=== PATIENT | male | born 1955 | race Caucasian/White ===

== ENCOUNTER → 2017-01-26 | Outpatient (CLI) | payer BC ==
--- NOTE | 2017-01-27 15:52 | MR ---
EXAMINATION TYPE: MR lumbar spine wo con DATE OF EXAM: 01/26/2017 6:54 AM COMPARISON: 02/24/2016 HISTORY: 61-year-old male with low back pain TECHNIQUE: Multiplanar, multisequence images of the lumbar spine were acquired. FINDINGS: Redemonstrated dextroconvex scoliotic curvature. Modic type I edematous endplate change towards the l eft at the center of the curvature at L2-L4 shows decreasing edematous Modic type I endplate change. There is grade 1 retrolisthesis that L2-L3. Hypertrophic facet arthropathy throughout. Degenerative thinning of the interspinous ligaments with near abutment of the spinous processes. Moderate multilevel degenerative disc disease with a desiccated and narrowed disc and diffuse bulging at multiple levels. Enlarging posterior annular fissure at L4-L5. No suspicious bone marrow replacement. Conus medullaris is normal. At T12-L1, no spinal canal or neuroforaminal stenosis. At L1-L2, mild bulge with mild attenuation of the thecal sac and minimal bilateral inferior foraminal narrowing, not significantly changed. At L3-L4, there is disc bulge with grade 1 retrolisthesis and facet degenerative change. There is mil d circumferential attenuation of the thecal sac but without significant spinal canal stenosis. There is moderate left and mild right neuroforaminal stenosis not significantly changed. At L3-L4, there is facet degenerative change and diffuse disc bulge. Changes result in attenuation of the thecal sac without significant spinal canal stenosis. There is similar moderate right and severe left neuroforaminal stenosis with effacement of the exiting left L3 nerve root. At L4-L5, diffuse disc bulge with enlarging posterior annular fissure. Ligamentum flavum thickening a nd facet degenerative changes also present. Mild narrowing of the spinal canal here. There is similar moderate bilateral neuroforaminal stenosis. At L5-S1, there is diffuse disc bulge without significant spinal canal or foraminal stenosis. No prevertebral or paravertebral soft tissue abnormality seen. IMPRESSION: 1. Redemonstrated degenerated dextroconvex curvature centered at L3-L4. The Modic type I endplate zakia nge towards the left at L3-L4 shows some interval improvement with residual endplate edema present. 2. Moderate to advanced multilevel degenerative disc disease with enlarging posterior annular fissure at L4-L5. 3. Additional facet arthropathy with similar grade 1 retrolisthesis at L2-L3. 4. There is continued severe left neuroforaminal stenosis at L3-L4 with effacement of the left L3 ner ve root. Also, similar moderate right neuroforaminal stenosis at this level, on the left at L3-L4, an d on both sides at L4-L5. 5. While changes mildly attenuate the thecal sac at multiple levels, particularly at L4-L5, there is no dexter canal compromise.
== END | disposition home or self-care (01) ==
LOC: RADMRIMAIN 06:20
PROVIDERS: ATTEND Neurological Surgery
DX: Z01.818 Encounter for other preprocedural examination (principal); M99.71 Connective tissue and disc stenosis of intervertebral foramina of cervical region; M51.36 Other intervertebral disc degeneration, lumbar region; M43.16 Spondylolisthesis, lumbar region; M46.96 Unspecified inflammatory spondylopathy, lumbar region; M43.8X6 Other specified deforming dorsopathies, lumbar region
CPT/HCPCS: 72148

== ENCOUNTER → 2018-01-21 | Outpatient (CLI) | payer BC ==
--- NOTE | 2018-01-21 10:49 | MR ---
EXAMINATION TYPE: MR lumbar spine wo/w con DATE OF EXAM: 01/21/2018 COMPARISON: 01/26/2017 HISTORY: Lumbosacral spondylosis TECHNIQUE: T1 and T2 axial and sagittal images of the lumbar spine are submitted. Exam is limited b y motion artifact. FINDINGS: Redemonstrated dextroconvex scoliotic curvature. Modic type I edematous endplate change tow ards the left at the center of the curvature at L2-L4 shows decreasing edematous Modic type I endplat e change. There is grade 1 retrolisthesis that L2-L3. Hypertrophic facet arthropathy throughout. Degenerative t hinning of the interspinous ligaments with near abutment of the spinous processes. Moderate multileve l degenerative disc disease with a desiccated and narrowed disc and diffuse bulging at multiple level s. Enlarging posterior annular fissure at L4-L5. No suspicious bone marrow replacement. Conus medulla ris is normal. Small vertebral body hemangioma of L1 and L3. At T12-L1, no spinal canal or neuroforaminal stenosis. At L1-L2, mild bulge with mild attenuation of the thecal sac and minimal bilateral inferior foraminal narrowing, not significantly changed. Degenerative disc disease stable. At L2-L3, there is disc bulge with grade 1 retrolisthesis and facet degenerative change. There is mil d circumferential attenuation of the thecal sac but with mild central stenosis. There is moderate lef t and mild right neuroforaminal stenosis not significantly changed. At L3-L4, there is facet degenerative change and diffuse disc bulge. Changes result in attenuation of the thecal sac without significant spinal canal stenosis. There is similar moderate to severe right and severe left neuroforaminal stenosis with effacement of the exiting left L3 nerve root. Postsurgic al changes are noted. Severe left-sided foraminal encroachment protrusion with compression of the ner ve root and neural foramina. At L4-5 there is severe degenerative disc disease with postsurgical changes. Central disc bulging wit h marked facet arthropathy. Moderate to severe bilateral foraminal encroachment. At L5-S1 there is degenerative disc disease. Postsurgical changes are noted. Facet arthropathy and di scogenic marrow changes with mild bilateral foraminal encroachment. IMPRESSION: 1. Surgical change with multilevel significant degenerative disc disease and facet arthropathy. Findi ngs result in multilevel significant foraminal encroachment with the greatest findings noted on the l eft at L3-L4 with suspected nerve root compression within the neural foramina.
== END | disposition home or self-care (01) ==
LOC: RADMRIMAIN 08:47
PROVIDERS: ATTEND Neurological Surgery
DX: M51.37 Other intervertebral disc degeneration, lumbosacral region (principal); M46.97 Unspecified inflammatory spondylopathy, lumbosacral region; Z98.890 Other specified postprocedural states
CPT/HCPCS: 82565; 72158; A9581

== ENCOUNTER 2020-05-02 12:41 | Day surgery (SDC) | payer BC, OTHER ==
[2020-04-30 10:48] VITALS: BMI 25.5
[~2020-05-02 12:41] MED LIST: LACTATED RINGERS 1,000 ML IV SCH
[2020-05-02 13:07] VITALS: RESP 16; TEMP 97.7
[2020-05-02] MEDS ORDERED: LIDOCAINE 1% (10MG/ML) FOR IV START INTRADERMA ONE (13:11)
[2020-05-02] MEDS ORDERED: PROPOFOL 10 MG/ML 20 ML VIAL IV ONE (13:47)
[2020-05-02 14:17] VITALS: PULSE 71
--- NOTE | 2020-05-02 14:18 | P.PCN ---
Date of Procedure: 05/02/20 Preoperative Diagnosis: GI bleed Postoperative Diagnosis: Gastritis Esophagitis Internal hemorrhoids Procedure(s) Performed: EGD with biopsy Colonoscopy Surgeon: Senia Carbone Pathology: other (Biopsies of esophagus, antrum, duodenum) Condition: stable Disposition: same day Indications for Procedure: 65-year-old male presented to the surgery clinic with complaints of blood in his stool and reflux like symptoms. Secondary to this plan is for upper and lower endoscopy for further evaluation. He was explained risks, benefits and alternatives to the procedure and did provide consent prior to attending the endoscopy suite. Operative Findings: Gastritis Esophagitis Internal hemorrhoids Description of Procedure: Patient was brought to the endoscopy suite. He was then placed in left lateral decubitus position and adequate sedation was achieved using conscious sedation. A bite block was placed and an endoscope was placed in the oropharynx and advanced under endoscopic visualization. The endoscope was then advanced through the esophagus into the stomach, through the gastric antrum and in through the pylorus. The third portion of the duodenum was visualized. The endoscope was then slowly withdrawn. The first portion of the duodenum was noted to have mild inflammatory changes. Biopsies were taken. The antrum was noted to have mild inflammatory changes. Biopsies were taken. The gastric body distended normally and the gastric folds appeared normal and flattened with insufflation. A retroflexed view of the fundus and GE junction revealed no significant hiatal hernia the GE junction also did reveal some inflammatory changes. The esophagus did appear inflamed at the distal portion. This area was biopsied. Excess air was removed and the scope was then withdrawn. Excellent the digital rectal exam was performed and mild internal hemorrhoids were palpated. An endoscope was then placed in the rectum and advanced to the cecum as identified and limits including the appendiceal orifice and the ileocecal valve. The prep was fair area the colon scope was then slowly withdrawn, examining for any mucosal abnormalities. The cecum, ascending, transverse, descending and sigmoid colon were visualized adequately. There were no large neoplastic lesions noted throughout the colon. There are no large polyps noted throughout the colon. There were no evidence of diverticulosis. Retroflexion was performed rectum and internal hemorrhoids were visible. Excess air was removed, the colon scope withdrawn and the procedure terminated. The patient was then transferred to the recovery unit in stable condition. Repeat colonoscopy should be performed in 8 years.
[2020-05-02 14:30] VITALS: BP 122/72
== END 2020-05-02 14:46 | disposition home or self-care (01) ==
LOC: ORWHC2ENDO 12:41
PROVIDERS: ATTEND Surgery
DX: K29.50 Unspecified chronic gastritis without bleeding (principal); K64.8 Other hemorrhoids; K22.70 Barrett's esophagus without dysplasia; K31.89 Other diseases of stomach and duodenum; K21.0 Gastro-esophageal reflux disease with esophagitis; E78.5 Hyperlipidemia, unspecified; Z98.52 Vasectomy status; Z87.891 Personal history of nicotine dependence
CPT/HCPCS: 88305; 45378; 43239; J2704

== ENCOUNTER 2020-09-06 00:03 | Inpatient (IN) | payer OTHER ==
[2020-09-06] MEDS ORDERED: MORPHINE SULFATE 4 MG/ML SYRINGE IV STA (00:09)
[2020-09-06] MEDS ORDERED: SODIUM CHLORIDE 0.9% 1,000 ML IV STA (00:09)
[2020-09-06] MEDS ORDERED: ONDANSETRON 4 MG/2 ML VIAL IVP STA (00:09)
--- NOTE | 2020-09-06 00:12 | ED ---
Abdominal Pain HPI - General Stated Complaint: Abdominal Pain Time Seen by Provider: 09/06/20 00:09 Source: RN notes reviewed, old records reviewed Limitations: no limitations - History of Present Illness Initial Comments: This is a 65-year-old male DF for evaluation patient Dese for evaluation of abdominal pain significant right lower quadrant abdominal pain and started earlier in the day but progressed throughout the night. He was epigastric in nature but rather quadrant). Positive fever with nausea vomiting. MD Complaint: abdominal pain (RLQ pain) -: days(s) Location: RLQ, suprapubic Radiation: suprapubic Migration to: RLQ, suprapubic Severity: severe Severity scale (1-10): 8 Consistency: constant Improves With: nothing Worsens With: nothing Associated Symptoms: nausea, vomiting Treatments Prior to Arrival: prescription analgesics - Related Data Home Medications Medication Instructions Recorded Confirmed No Known Home Medications 09/06/20 09/06/20 Allergies Allergy/AdvReac Type Severity Reaction Status Date / Time No Known Allergies Allergy Verified 09/06/20 08:33 Review of Systems ROS Statement: Those systems with pertinent positive or pertinent negative responses have been documented in the HPI. ROS Other: All systems not noted in ROS Statement are negative. Past Medical History Past Medical History: No Reported History, Hyperlipidemia Additional Past Medical History / Comment(s): rectal bleeding with bowel movements, History of Any Multi-Drug Resistant Organisms: None Reported Past Surgical History: Back Surgery, Orthopedic Surgery Additional Past Surgical History / Comment(s): left knee surgery as teen, laminectomy, colonoscopy Past Anesthesia/Blood Transfusion Reactions: No Reported Reaction Smoking Status: Former smoker - Past Family History Father Family Medical History: Cancer General Exam General appearance: alert, in no apparent distress, anxious Head exam: Present: atraumatic, normocephalic, normal inspection Eye exam: Present: normal appearance, PERRL, EOMI. Absent: scleral icterus, conjunctival injection, periorbital swelling ENT exam: Present: normal exam, mucous membranes moist Neck exam: Present: normal inspection. Absent: tenderness, meningismus, lymphadenopathy Respiratory exam: Present: normal lung sounds bilaterally. Absent: respiratory distress, wheezes, rales, rhonchi, stridor Cardiovascular Exam: Present: regular rate, normal rhythm, normal heart sounds. Absent: systolic murmur, diastolic murmur, rubs, gallop, clicks GI/Abdominal exam: Present: soft, normal bowel sounds. Absent: distended, tenderness, guarding, rebound, rigid Extremities exam: Present: normal inspection, full ROM, normal capillary refill. Absent: tenderness, pedal edema, joint swelling, calf tenderness Back exam: Present: normal inspection Neurological exam: Present: alert, oriented X3, CN II-XII intact Psychiatric exam: Present: normal affect, normal mood Skin exam: Present: warm, dry, intact, normal color. Absent: rash Course Vital Signs 09/06/20 09/06/20 09/06/20 00:15 01:31 02:35 Temperature 99.4 F Pulse Rate 63 95 98 Respiratory 18 18 19 Rate Blood Pressure 129/78 126/75 125/71 O2 Sat by Pulse 98 99 98 Oximetry - Reevaluation(s) Reevaluation #1: Medical record is reviewed Patient is informed of results here in the ER and questions are answered Patient spoken with, feeling better, symptoms remained improved Medical Decision Making - Medical Decision Making 62 female DEL with severe sudden onset of worsening right lower quadrant abdominal pain. Pain is been indolent throughout the day but worse tonight. Positive CT for acute appendicitis patient be admitted for antibiotics and symptom management, surgical evaluation and treatment - Lab Data Result diagrams: 09/09/20 06:37 09/09/20 06:37 Lab Results 09/06/20 09/06/20 09/06/20 Range/Units 00:35 00:35 00:35 WBC 21.0 H (3.8-10.6) k/uL RBC 4.95 (4.30-5.90) m/uL Hgb 14.7 (13.0-17.5) gm/dL Hct 45.2 (39.0-53.0) % MCV 91.2 (80.0-100.0) fL MCH 29.6 (25.0-35.0) pg MCHC 32.5 (31.0-37.0) g/dL RDW 12.9 (11.5-15.5) % Plt Count 239 (150-450) k/uL MPV 10.2 Neutrophils % 87 % Lymphocytes % 7 % Monocytes % 4 % Eosinophils % 1 % Basophils % 0 % Neutrophils # 18.4 H (1.3-7.7) k/uL Lymphocytes # 1.5 (1.0-4.8) k/uL Monocytes # 0.8 (0-1.0) k/uL Eosinophils # 0.2 (0-0.7) k/uL Basophils # 0.0 (0-0.2) k/uL Sodium 138 (137-145) mmol/L Potassium 4.2 (3.5-5.1) mmol/L Chloride 103 (98-107) mmol/L Carbon Dioxide 25 (22-30) mmol/L Anion Gap 10 mmol/L BUN 15 (9-20) mg/dL Creatinine 0.86 (0.66-1.25) mg/dL Est GFR (CKD-EPI)AfAm >90 (>60 ml/min/1.73 sqM) Est GFR (CKD-EPI)NonAf >90 (>60 ml/min/1.73 sqM) BUN/Creatinine Ratio (12.00-20.00) Ratio Glucose 155 H (74-99) mg/dL Plasma Lactic Acid Lee (0.7-2.0) mmol/L Calcium 9.4 (8.4-10.2) mg/dL Magnesium (1.5-2.4) mg/dL Total Bilirubin 0.8 (0.2-1.3) mg/dL AST 20 (17-59) U/L ALT 17 (4-49) U/L Alkaline Phosphatase 100 (38-126) U/L Creatine Kinase 47 L (55-170) U/L Total Protein 7.9 (6.3-8.2) g/dL Albumin 4.5 (3.5-5.0) g/dL Globulin (1.6-3.3) g/dL Albumin/Globulin Ratio (1.60-3.17) g/dL Amylase 39 (30-110) U/L Lipase 27 (23-300) U/L Urine Color Yellow Urine Appearance Cloudy (Clear) Urine pH 5.5 (5.0-8.0) Ur Specific [place] 1.032 (1.001-1.035) Urine Protein 1+ H (Negative) Urine Glucose (UA) Negative (Negative) Urine Ketones 1+ H (Negative) Urine Blood Trace H (Negative) Urine Nitrite Negative (Negative) Urine Bilirubin Negative (Negative) Urine Urobilinogen <2.0 (<2.0) mg/dL Ur Leukocyte Esterase Negative (Negative) Urine RBC 12 H (0-5) /hpf Urine WBC 3 (0-5) /hpf Ur Squamous Epith Cells 1 (0-4) /hpf Urine Mucus Many H (None) /hpf Coronavirus (PCR) (Not Detectd) 09/06/20 09/06/20 09/06/20 Range/Units 00:35 04:00 12:20 WBC 24.3 H (3.8-10.6) k/uL RBC 4.27 L (4.30-5.90) m/uL Hgb 13.0 (13.0-17.5) gm/dL Hct 38.7 L (39.0-53.0) % MCV 90.6 (80.0-100.0) fL MCH 30.5 (25.0-35.0) pg MCHC 33.7 (31.0-37.0) g/dL RDW 12.7 (11.5-15.5) % Plt Count 203 (150-450) k/uL MPV 7.8 Neutrophils % 91 % Lymphocytes % 6 % Monocytes % 2 % Eosinophils % 0 % Basophils % 0 % Neutrophils # 22.2 H (1.3-7.7) k/uL Lymphocytes # 1.4 (1.0-4.8) k/uL Monocytes # 0.5 (0-1.0) k/uL Eosinophils # 0.0 (0-0.7) k/uL Basophils # 0.1 (0-0.2) k/uL Sodium (137-145) mmol/L Potassium (3.5-5.1) mmol/L Chloride (98-107) mmol/L Carbon Dioxide (22-30) mmol/L Anion Gap mmol/L BUN (9-20) mg/dL Creatinine (0.66-1.25) mg/dL Est GFR (CKD-EPI)AfAm (>60 ml/min/1.73 sqM) Est GFR (CKD-EPI)NonAf (>60 ml/min/1.73 sqM) BUN/Creatinine Ratio (12.00-20.00) Ratio Glucose (74-99) mg/dL Plasma Lactic Acid Lee 1.5 (0.7-2.0) mmol/L Calcium (8.4-10.2) mg/dL Magnesium (1.5-2.4) mg/dL Total Bilirubin (0.2-1.3) mg/dL AST (17-59) U/L ALT (4-49) U/L Alkaline Phosphatase (38-126) U/L Creatine Kinase (55-170) U/L Total Protein (6.3-8.2) g/dL Albumin (3.5-5.0) g/dL Globulin (1.6-3.3) g/dL Albumin/Globulin Ratio (1.60-3.17) g/dL Amylase (30-110) U/L Lipase (23-300) U/L Urine Color Urine Appearance (Clear) Urine pH (5.0-8.0) Ur Specific [place] (1.001-1.035) Urine Protein (Negative) Urine Glucose (UA) (Negative) Urine Ketones (Negative) Urine Blood (Negative) Urine Nitrite (Negative) Urine Bilirubin (Negative) Urine Urobilinogen (<2.0) mg/dL Ur Leukocyte Esterase (Negative) Urine RBC (0-5) /hpf Urine WBC (0-5) /hpf Ur Squamous Epith Cells (0-4) /hpf Urine Mucus (None) /hpf Coronavirus (PCR) Not Detected (Not Detectd) 09/07/20 09/07/20 Range/Units 05:10 05:10 WBC 18.5 H (3.8-10.6) k/uL RBC 3.95 L (4.30-5.90) m/uL Hgb 11.8 L (13.0-17.5) gm/dL Hct 36.2 L (39.0-53.0) % MCV 91.7 (80.0-100.0) fL MCH 29.8 (25.0-35.0) pg MCHC 32.5 (31.0-37.0) g/dL RDW 13.0 (11.5-15.5) % Plt Count 202 (150-450) k/uL MPV 8.0 Neutrophils % 91 % Lymphocytes % 5 % Monocytes % 3 % Eosinophils % 1 % Basophils % 0 % Neutrophils # 16.8 H (1.3-7.7) k/uL Lymphocytes # 1.0 (1.0-4.8) k/uL Monocytes # 0.5 (0-1.0) k/uL Eosinophils # 0.2 (0-0.7) k/uL Basophils # 0.0 (0-0.2) k/uL Sodium 139 (137-145) mmol/L Potassium 3.7 (3.5-5.1) mmol/L Chloride 109 (98-107) mmol/L Carbon Dioxide 24.6 (22-30) mmol/L Anion Gap 5.40 mmol/L BUN 16.0 (9-20) mg/dL Creatinine 0.8 (0.66-1.25) mg/dL Est GFR (CKD-EPI)AfAm 110.2 (>60 ml/min/1.73 sqM) Est GFR (CKD-EPI)NonAf 95.1 (>60 ml/min/1.73 sqM) BUN/Creatinine Ratio 20.00 (12.00-20.00) Ratio Glucose 96 (74-99) mg/dL Plasma Lactic Acid Lee (0.7-2.0) mmol/L Calcium 7.9 L (8.4-10.2) mg/dL Magnesium 1.8 (1.5-2.4) mg/dL Total Bilirubin 0.8 (0.2-1.3) mg/dL AST 13 L (17-59) U/L ALT 11 (4-49) U/L Alkaline Phosphatase 66 (38-126) U/L Creatine Kinase (55-170) U/L Total Protein 5.0 L (6.3-8.2) g/dL Albumin 3.30 L (3.5-5.0) g/dL Globulin 1.7 (1.6-3.3) g/dL Albumin/Globulin Ratio 1.94 (1.60-3.17) g/dL Amylase (30-110) U/L Lipase (23-300) U/L Urine Color Urine Appearance (Clear) Urine pH (5.0-8.0) Ur Specific [place] (1.001-1.035) Urine Protein (Negative) Urine Glucose (UA) (Negative) Urine Ketones (Negative) Urine Blood (Negative) Urine Nitrite (Negative) Urine Bilirubin (Negative) Urine Urobilinogen (<2.0) mg/dL Ur Leukocyte Esterase (Negative) Urine RBC (0-5) /hpf Urine WBC (0-5) /hpf Ur Squamous Epith Cells (0-4) /hpf Urine Mucus (None) /hpf Coronavirus (PCR) (Not Detectd) - Radiology Data Radiology results: report reviewed (CT of the abdomen and pelvis positive for acute appendicitis), image reviewed Disposition Clinical Impression: Abdominal pain, Acute appendicitis Disposition: ADMITTED IP TO THIS HOSP Condition: Good Is patient prescribed a controlled substance at d/c from ED?: No
[2020-09-06 00:54] LABS: Appearance,Urine Cloudy (Clear); Bilirubin,Urine Negative (Negative); Blood,Urine Trace (Negative); Color,Urine Yellow; Glucose,Urine (UA) Negative (Negative); Ketones,Urine 1+ (Negative); Leukocyte Esterase,Urine Negative (Negative); Mucus,Urine Many /hpf; Nitrite,Urine Negative (Negative); PH, Urine 5.5 (5.0-8.0); Protein,Urine 1+ (Negative); RBC,Urine 12 /hpf (0-5); Specific Gravity,Urine 1.032 (1.001-1.035); Squamous Epithelial Cell,Urine 1 /hpf (0-4); Urobilinogen,Urine <2.0 mg/dL (<2.0); WBC,Urine 3 /hpf (0-5)
[2020-09-06 01:00] LABS: ALT 17 U/L (4-49); AST 20 U/L (17-59); African American GFR (CKD) >90 (>60 ml/min/1.73 sqM); Albumin 4.5 g/dL (3.5-5.0); Alkaline Phosphatase 100 U/L (38-126); Amylase 39 U/L (30-110); Anion Gap 10 mmol/L; Blood Urea Nitrogen 15 mg/dL (9-20); Calcium 9.4 mg/dL (8.4-10.2); Carbon Dioxide 25 mmol/L (22-30); Chloride 103 mmol/L (98-107); Creatine Kinase 47 U/L (55-170); Glucose 155 mg/dL (74-99); Lipase 27 U/L (23-300); Non-African American GFR(CKD) >90 (>60 ml/min/1.73 sqM); Potassium 4.2 mmol/L (3.5-5.1); Sodium 138 mmol/L (137-145); Total Bilirubin 0.8 mg/dL (0.2-1.3); Total Protein 7.9 g/dL (6.3-8.2)
[2020-09-06 01:29] LABS: Basophils % (A) 0 %; Eosinophils # (A) 0.2 k/uL (0-0.7); Eosinophils % (A) 1 %; HCT 45.2 % (39.0-53.0); HGB 14.7 gm/dL (13.0-17.5); Lymphocytes # (A) 1.5 k/uL (1.0-4.8); Lymphocytes % (A) 7 %; MCH 29.6 pg (25.0-35.0); MCHC 32.5 g/dL (31.0-37.0); MCV 91.2 fL (80.0-100.0); Mean Platelet Volume 10.2; Monocytes # (A) 0.8 k/uL (0-1.0); Monocytes % (A) 4 %; Neutrophils # (A) 18.4 k/uL (1.3-7.7); Neutrophils % (A) 87 %; Platelet Count 239 k/uL (150-450); RBC 4.95 m/uL (4.30-5.90); RDW 12.9 % (11.5-15.5)
[2020-09-06] MEDS ORDERED: AMPICILLIN-SULBACTAM 3 GM in SODIUM CHLORIDE 0.9% 100 ML IVPB STA (01:55)
--- NOTE | 2020-09-06 01:57 | CT ---
EXAM: CT Abdomen and Pelvis With Intravenous Contrast CLINICAL HISTORY: ITS.REASON CT Reason: abdominal pain TECHNIQUE: Axial computed tomography images of the abdomen and pelvis with intravenous contrast. CTDI is 18.57 mGy and DLP is 884.2 mGy-cm. This CT exam was performed using one or more of the following dose reduction techniques: automated exposure control, adjustment of the mA and/or kV according to patient size, and/or use of iterative reconstruction technique. COMPARISON: MRI lumbar spine from January 21, 2018 FINDINGS: Lung bases: Small amount of streaky bibasilar subsegmental atelectasis in the lungs. ABDOMEN: Liver: Unremarkable. No mass. Gallbladder and bile ducts: Unremarkable. No calcified stones. No ductal dilation. Pancreas: Unremarkable. No mass. No ductal dilation. Spleen: Unremarkable. No splenomegaly. Adrenals: Unremarkable. No mass. Kidneys and ureters: Unremarkable. No solid mass. No hydronephrosis. Stomach and bowel: Unremarkable. No obstruction. No mucosal thickening. PELVIS: Appendix: 1.4 cm inflamed appendix in the right lower quadrant characteristic of acute appendicitis. No signs of rupture or abscess. Bladder: Unremarkable. No mass. Reproductive: Unremarkable as visualized. ABDOMEN and PELVIS: Intraperitoneal space: Unremarkable. No free air. No significant fluid collection. Bones/joints: Moderate degenerative changes in the lumbar spine with previous laminectomy. No acute fracture or subluxation is seen. Soft tissues: Unremarkable. Vasculature: Moderate calcification of a nondilated abdominal aorta. Lymph nodes: Unremarkable. No enlarged lymph nodes. IMPRESSION: 1.4 cm inflamed appendix in the right lower quadrant characteristic of acute appendicitis. No signs of rupture or abscess. <MYCVCSECTION> Communications: 09/06/20 01:58 Call Doctor Regarding Appendicitis, called Dr. Denton on 09/06 01:57 (-05:00)
[2020-09-06] MEDS ORDERED: HYDROmorphone 1 MG/ML 1 ML SYRINGE IVP STA (02:02)
[2020-09-06] MEDS ORDERED: NALOXONE 0.4 MG/ML 1 ML VIAL IV PRN (02:41)
[2020-09-06] MEDS ORDERED: ONDANSETRON 4 MG/2 ML VIAL IVP PRN (02:41)
[2020-09-06] MEDS ORDERED: MORPHINE SULFATE 4 MG/ML SYRINGE IV PRN (02:41)
[2020-09-06] MEDS: HYDROmorphone 1 MG/ML 1 ML SYRINGE IVP PRN ×5 (06:35→21:00)
--- NOTE | 2020-09-06 07:07 | P.CONS ---
History of Present Illness - Reason for Consult Consult date: 09/06/20 medical management Requesting physician: Sophie Warren - Chief Complaint abd pain - History of Present Illness 65-year-old male with no significant past medical history Patient comes in complaining of acute onset abdominal pain, described as lower abdominal pain started early in the morning 6-8 out of 10 in severity however throughout the day pain became more progressive and shifted to the right lower quadrant associated with 1 episodes of vomiting after drinking water otherwise patient had no appetite and could not eat anything he denies any associated urinary symptoms or any similar episodes in the past denies any history of kidney stones denies any GI bleeding she had a colonoscopy 3 months ago and was found to have hemorrhoids otherwise unremarkable patient otherwise in good health denies any diabetes or heart disease. Patient denies any fevers or chills at home. Denies any upper respiratory infection symptoms denies any sick contacts or recent travel denies any unsanitary food or drink Patient became worse toward the evening time for which she came to the hospital workup in the ED showed white count of 21 CT of the abdomen showed evidence of acute appendicitis Review of Systems Pertinent positives as noted in HPI. All other systems were reviewed and are negative Past Medical History Past Medical History: No Reported History, Hyperlipidemia Additional Past Medical History / Comment(s): rectal bleeding with bowel movements, History of Any Multi-Drug Resistant Organisms: None Reported Past Surgical History: Back Surgery, Orthopedic Surgery Additional Past Surgical History / Comment(s): left knee surgery as teen, laminectomy, colonoscopy Past Anesthesia/Blood Transfusion Reactions: No Reported Reaction Past Psychological History: No Psychological Hx Reported Smoking Status: Former smoker Past Alcohol Use History: Occasional Additional Past Alcohol Use History / Comment(s): quit smoking 4-5 yrs ago, smoked for 10-12 yrs, 1 PPD Past Drug Use History: None Reported - Past Family History Father Family Medical History: Cancer Medications and Allergies Home Medications Medication Instructions Recorded Confirmed Type Omeprazole 20 mg PO DAILY #30 tablet. 05/02/20 Rx Allergies Allergy/AdvReac Type Severity Reaction Status Date / Time No Known Allergies Allergy Verified 04/30/20 10:42 Physical Exam Vitals: Vital Signs Temp Pulse Resp BP BP Pulse Ox 09/06/20 04:31 99.7 F H 16 113/65 95 09/06/20 03:55 98.0 F 94 19 126/74 99 09/06/20 02:35 98 19 125/71 98 09/06/20 01:31 95 18 126/75 99 09/06/20 00:15 99.4 F 63 18 129/78 98 Intake and Output 09/05/20 09/05/20 09/06/20 14:59 22:59 06:59 Other: Weight 85.729 kg Constitutional: No acute distress, conversant, pleasant Eyes: Anicteric sclerae, moist conjunctiva, Pupils equal round reactive to light ENMT: NC/AT Oropharynx clear, no erythema, or exudates Neck: Supple, FROM, no masses, or JVD No carotid bruits No thyromegaly Lungs: Clear to auscultation Clear to percussion Normal respiratory effort, no accessory muscle use Cardiovascular: Heart regular in rate and rhythm, No murmurs, gallops, or rubs No peripheral edema Abdominal: Soft Tenderness to palpation of the abdomen with voluntary guarding and rebound tenderness over the right lower quadrant Abdomen moving with respiration Normoactive bowel sounds No hepatomegaly, No splenomegaly No palpable mass No abdominal wall hernia noted Skin: Normal temperature, tone, texture, turgor No induration No subcutaneous nodules No rash, lesions No ulcers Extremities: No digital cyanosis No clubbing Pedal pulses intact and symmetrical Radial pulses intact and symmetrical No calf tenderness Psychiatric: Alert and oriented to person, place and time Appropriate affect fair judgement Neuro Muscles Strength 5/5 in all 4 extremities Sensation to light touch grossly present throughout Cranial nerves II-XII grossly intact No focal sensory deficits Lymphatics: no palpable cervical or supraclavicular , or inguinal lymph nodes Results CBC & Chem 7: 09/06/20 00:35 09/06/20 00:35 Labs: Abnormal Lab Results - Last 24 Hours (Table) 09/06/20 09/06/20 09/06/20 Range/Units 00:35 00:35 00:35 WBC 21.0 H (3.8-10.6) k/uL Neutrophils # 18.4 H (1.3-7.7) k/uL Glucose 155 H (74-99) mg/dL Creatine Kinase 47 L (55-170) U/L Urine Protein 1+ H (Negative) Urine Ketones 1+ H (Negative) Urine Blood Trace H (Negative) Urine RBC 12 H (0-5) /hpf Urine Mucus Many H (None) /hpf Assessment and Plan Assessment: Acute appendicitis IV antibiotic per general surgery on Unasyn IV fluid hydration Pain control Surgical recommendations per primary team Follow-up CBC and BMP Patient is full code Thank you for allowing us to participate in the care of this patient. . Do not hesitate to contact us with questions. Someone can be reached from the [facility] hospitalist group at all hours of the day at [phone].
[2020-09-06] MEDS: PANTOPRAZOLE 40 MG/10 ML VIAL IV SCH (07:24)
[2020-09-06] MEDS ORDERED: AMPICILLIN-SULBACTAM 3 GM in SODIUM CHLORIDE 0.9% 100 ML IVPB SCH (11:00)
[2020-09-06] MEDS ORDERED: SODIUM CHLORIDE 0.9% 1,000 ML IV ONE (12:03)
[2020-09-06] MEDS: ACETAMINOPHEN TAB 500 MG TAB PO SCH ×3 (12:22→23:53)
[2020-09-06] MEDS: KETOROLAC 15 MG/ML 1 ML VIAL IVP SCH ×3 (12:23→23:54)
[2020-09-06] MEDS: PIPERACILLIN-TAZOBACTAM 3.375 GM in SODIUM CHLORIDE 0.9% 100 ML IVPB SCH ×2 (12:23→19:01)
[2020-09-06] MEDS: metroNIDAZOLE-NS PMX 500 MG in SALINE 1 100ML.BAG IVPB SCH ×3 (12:24→23:54)
[2020-09-06 12:33] LABS: Basophils # (A) 0.1 k/uL (0-0.2); Basophils % (A) 0 %; Eosinophils % (A) 0 %; HCT 38.7 % (39.0-53.0); Lymphocytes # (A) 1.4 k/uL (1.0-4.8); Lymphocytes % (A) 6 %; MCH 30.5 pg (25.0-35.0); MCHC 33.7 g/dL (31.0-37.0); MCV 90.6 fL (80.0-100.0); Mean Platelet Volume 7.8; Monocytes # (A) 0.5 k/uL (0-1.0); Monocytes % (A) 2 %; Neutrophils # (A) 22.2 k/uL (1.3-7.7); Neutrophils % (A) 91 %; Platelet Count 203 k/uL (150-450); RBC 4.27 m/uL (4.30-5.90); RDW 12.7 % (11.5-15.5); WBC 24.3 k/uL (3.8-10.6)
--- NOTE | 2020-09-06 13:05 | P.GSHP ---
History of Present Illness H&P Date: 09/06/20 CHIEF COMPLAINT: Right lower quadrant abdominal pain for over 1 day. HISTORY OF PRESENT ILLNESS: The patient is a previously healthy 65-year-old male who reports developing right lower quadrant abdominal pain yesterday morning. This pain grew worse then he presented to the emergency room. He reports nausea and vomiting yesterday. Today, he reports his pain is controlled with pain meds. He complains of thirst. He did have a colonoscopy 3 months ago. No reports of colon cancer. Patient is admitted for appendicitis per computed tomography scan. PAST MEDICAL HISTORY: See list. PAST SURGICAL HISTORY: See list. CURRENT MEDICATIONS: See list. ALLERGIES: See list. SOCIAL HISTORY: See list. FAMILY HISTORY: No colon cancer. REVIEW OF ORGAN SYSTEMS: CONSTITUTIONAL: Present fever, no chills. Denies recent weight loss. HEENT: Denies any trouble with vision, hearing or nosebleeds. No difficulty swallowing. LYMPHATIC: The patient denies any lumps and bumps around the neck. ENDOCRINE: Denies any thyroid disorders. Denies any blood sugar glucose intolerance. RESPIRATORY: Denies shortness of breath including chronic cough. CARDIOVASCULAR: Denies history of chest pain with exertion. GASTROINTESTINAL: Recent colonoscopy less than 6 months ago. GENITOURINARY: Denies any blood in urine or increased urinary frequency. MUSCULOSKELETAL: Denies current joint arthritis. NEUROLOGIC: Denies any numbness or tingling along the distal extremities. No se izure disorders or headaches. PSYCHIATRIC: Denies any depression or suicidal ideation. HEMATOLOGIC: Denies any abnormal bleeding or bruising. PHYSICAL EXAMINATION: GENERAL: A 65-year-old male in no acute distress. HEENT: No sclera icterus. Extraocular movements grossly intact. Moist buccal mucosa. Head is atraumatic, normocephalic. Hears conversational speech. No nasal drainage. NECK: Supple without lymphadenopathy. No JV distention. CHEST: Non-labored respirations and equal bilateral excursions. CARDIOVASCULAR: Regular rate and rhythm. Palpable 2+ radial pulses. ABDOMEN: Soft, tender at the right lower quadrant. No diffuse peritonitis. MUSCULOSKELETAL: No clubbing, cyanosis or edema. NEUROLOGIC: No focal or lateralizing signs. PSYCH: Appropriate affect. Alert and oriented to person, place and time. SKIN: Well perfused. Good skin turgor. LABS: Reviewed. White blood cell count elevated over 21,000. STUDIES: CT of the abdomen and pelvis report reviewed with 1.4 cm appendicitis. ASSESSMENT: 1. Right lower quadrant pain. 2. Appendicitis 3. Leukocytosis. PLAN: 1. I have discussed laparoscopic appendectomy. 2. Bilateral SCDs. 3. Antibiotics intravenous to address leukocytosis 4. For pain management, scheduled Tylenol and ibuprofen Past Medical History Past Medical History: No Reported History, Hyperlipidemia Additional Past Medical History / Comment(s): rectal bleeding with bowel movements, History of Any Multi-Drug Resistant Organisms: None Reported Past Surgical History: Back Surgery, Orthopedic Surgery Additional Past Surgical History / Comment(s): left knee surgery as teen, laminectomy, colonoscopy Past Anesthesia/Blood Transfusion Reactions: No Reported Reaction Past Psychological History: No Psychological Hx Reported Smoking Status: Former smoker Past Alcohol Use History: Occasional Additional Past Alcohol Use History / Comment(s): quit smoking 4-5 yrs ago, s moked for 10-12 yrs, 1 PPD Past Drug Use History: None Reported - Past Family History Father Family Medical History: Cancer Medications and Allergies Home Medications Medication Instructions Recorded Confirmed Type No Known Home Medications 09/06/20 09/06/20 History Allergies Allergy/AdvReac Type Severity Reaction Status Date / Time No Known Allergies Allergy Verified 09/06/20 08:33 Surgical - Exam Vital Signs Temp Pulse Resp BP Pulse Ox 99.4 F 63 18 129/78 98 09/06/20 00:15 09/06/20 00:15 09/06/20 00:15 09/06/20 00:15 09/06/20 00:15 Results - Labs 09/06/20 12:20 09/06/20 00:35 Abnormal Lab Results - Last 24 Hours (Table) 09/06/20 09/06/20 09/06/20 Range/Units 00:35 00:35 00:35 WBC 21.0 H (3.8-10.6) k/uL Neutrophils # 18.4 H (1.3-7.7) k/uL Glucose 155 H (74-99) mg/dL Creatine Kinase 47 L (55-170) U/L Urine Protein 1+ H (Negative) Urine Ketones 1+ H (Negative) Urine Blood Trace H (Negative) Urine RBC 12 H (0-5) /hpf Urine Mucus Many H (None) /hpf Diabetes panel 09/06/20 Range/Units 00:35 Sodium 138 (137-145) mmol/L Potassium 4.2 (3.5-5.1) mmol/L Chloride 103 (98-107) mmol/L Carbon Dioxide 25 (22-30) mmol/L BUN 15 (9-20) mg/dL Creatinine 0.86 (0.66-1.25) mg/dL Glucose 155 H (74-99) mg/dL Calcium 9.4 (8.4-10.2) mg/dL AST 20 (17-59) U/L ALT 17 (4-49) U/L Alkaline Phosphatase 100 (38-126) U/L Total Protein 7.9 (6.3-8.2) g/dL Albumin 4.5 (3.5-5.0) g/dL Calcium panel 09/06/20 Range/Units 00:35 Calcium 9.4 (8.4-10.2) mg/dL Albumin 4.5 (3.5-5.0) g/dL Pituitary panel 09/06/20 Range/Units 00:35 Sodium 138 (137-145) mmol/L Potassium 4.2 (3.5-5.1) mmol/L Chloride 103 (98-107) mmol/L Carbon Dioxide 25 (22-30) mmol/L BUN 15 (9-20) mg/dL Creatinine 0.86 (0.66-1.25) mg/dL Glucose 155 H (74-99) mg/dL Calcium 9.4 (8.4-10.2) mg/dL Adrenal panel 09/06/20 Range/Units 00:35 Sodium 138 (137-145) mmol/L Potassium 4.2 (3.5-5.1) mmol/L Chloride 103 (98-107) mmol/L Carbon Dioxide 25 (22-30) mmol/L BUN 15 (9-20) mg/dL Creatinine 0.86 (0.66-1.25) mg/dL Glucose 155 H (74-99) mg/dL Calcium 9.4 (8.4-10.2) mg/dL Total Bilirubin 0.8 (0.2-1.3) mg/dL AST 20 (17-59) U/L ALT 17 (4-49) U/L Alkaline Phosphatase 100 (38-126) U/L Total Protein 7.9 (6.3-8.2) g/dL Albumin 4.5 (3.5-5.0) g/dL Assessment and Plan (1) Acute appendicitis Current Visit: Yes Status: Acute Code(s): K35.80 - UNSPECIFIED ACUTE APPENDICITIS SNOMED Code(s): 61153549
--- NOTE | 2020-09-06 14:17 | P.PN ---
Progress Note - Text Progress Note Date: 09/06/20 Patient reevaluated with discussion of care plan. Patient placed on scheduled Toradol including Tylenol for pain. Also antibiotics include Flagyl started. He tolerated liquid diet. Abdominal pain is stable. Laparoscopic appendectomy including benefits and risks described. All questions addressed.
[2020-09-06] MEDS: ENOXAPARIN 30 MG/0.3 ML SYRINGE SQ SCH (15:12)
[2020-09-07] MEDS: HYDROmorphone 1 MG/ML 1 ML SYRINGE IVP PRN ×3 (00:01→15:18)
[2020-09-07] MEDS: ACETAMINOPHEN TAB 500 MG TAB PO SCH ×4 (04:54→23:05)
[2020-09-07] MEDS: KETOROLAC 15 MG/ML 1 ML VIAL IVP SCH ×4 (04:54→23:05)
[2020-09-07] MEDS: PIPERACILLIN-TAZOBACTAM 3.375 GM in SODIUM CHLORIDE 0.9% 100 ML IVPB SCH ×3 (04:55→20:54)
[2020-09-07] MEDS: metroNIDAZOLE-NS PMX 500 MG in SALINE 1 100ML.BAG IVPB SCH ×4 (04:55→23:06)
[2020-09-07 05:23] LABS: Basophils % (A) 0 %; Eosinophils # (A) 0.2 k/uL (0-0.7); Eosinophils % (A) 1 %; HCT 36.2 % (39.0-53.0); HGB 11.8 gm/dL (13.0-17.5); Lymphocytes % (A) 5 %; MCH 29.8 pg (25.0-35.0); MCHC 32.5 g/dL (31.0-37.0); MCV 91.7 fL (80.0-100.0); Monocytes # (A) 0.5 k/uL (0-1.0); Monocytes % (A) 3 %; Neutrophils # (A) 16.8 k/uL (1.3-7.7); Neutrophils % (A) 91 %; Platelet Count 202 k/uL (150-450); RBC 3.95 m/uL (4.30-5.90); WBC 18.5 k/uL (3.8-10.6)
[2020-09-07] MEDS: PANTOPRAZOLE 40 MG/10 ML VIAL IV SCH (07:24)
[2020-09-07 09:27] LABS: African American GFR (CKD) 110.2 (60.0-200.0); Albumin 3.3 g/dL (3.80-4.90); Albumin/Globulin Ratio 1.94 (1.60-3.17); Anion Gap 5.4 mmol/L (4.00-12.00); Calcium 7.9 mg/dL (8.7-10.3); Carbon Dioxide 24.6 mmol/L (21.6-31.8); Globulin 1.7 g/dL (1.6-3.3); Magnesium 1.8 mg/dL (1.5-2.4); Non-African American GFR(CKD) 95.1 (60.0-200.0); Potassium 3.7 mmol/L (3.5-5.5); Total Bilirubin 0.8 mg/dL (0.2-1.2)
[2020-09-07] MEDS ORDERED: HEPARIN SODIUM,PORCINE 5,000 UNIT/ML 1 ML VIAL IV STA (09:45)
--- NOTE | 2020-09-07 09:49 | P.HPADDEND ---
H&P Addendum H&P Addendum Date: 09/07/20 Patient reports no worsening abdominal pain. He tolerated liquids yesterday. Benefits and risks of laparoscopic appendectomy described including placement of ODALIS drain, bleeding, infection reviewed. Inpatient hospitalization described for moderately elevated leukocytosis.
[2020-09-07] MEDS ORDERED: MIDAZOLAM 2 MG/2 ML VIAL IVP ONE (09:55)
[2020-09-07] MEDS ORDERED: HEPARIN SODIUM,PORCINE 5,000 UNIT/ML 1 ML VIAL SQ ONE (09:56)
[2020-09-07] MEDS ORDERED: HEPARIN SODIUM,PORCINE 5,000 UNIT/ML 1 ML VIAL SQ STA (09:56)
[2020-09-07] MEDS ORDERED: GLYCOPYRROLATE 0.2 MG/ML 2 ML VIAL ONE (10:00)
[2020-09-07] MEDS ORDERED: DEXAMETHASONE SOD PHOSPHATE 10 MG/ML 1 ML VIAL ONE (10:00)
[2020-09-07] MEDS ORDERED: ROCURONIUM 10 MG/ML (10 ML VIAL) IV ONE (10:00)
[2020-09-07] MEDS ORDERED: PROPOFOL 10 MG/ML 20 ML VIAL IV ONE (10:00)
[2020-09-07] MEDS ORDERED: NEOSTIGMINE 1 MG/ML 10 ML VIAL ONE (10:00)
[2020-09-07] MEDS ORDERED: KETOROLAC 15 MG/ML 1 ML VIAL ONE (10:00)
[2020-09-07] MEDS ORDERED: SUCCINYLCHOLINE CHLORIDE 100 MG/5 ML SYR IV ONE (10:00)
[2020-09-07] MEDS ORDERED: fentaNYL (PF) 50 MCG/ML 2 ML AMP ONE (10:00)
[2020-09-07] MEDS ORDERED: LIDOCAINE 1%-EPI 1:100,000 20 ML VIAL SQ ONE (10:04)
[2020-09-07] MEDS ORDERED: SODIUM CHLORIDE 0.9% 1,000 ML IV ONE (10:04)
[2020-09-07] MEDS ORDERED: ceFAZolin 1,000 MG VIAL IVPB ONE (10:31)
[2020-09-07] MEDS ORDERED: LACTATED RINGERS 1,000 ML IV ONE (10:50)
--- NOTE | 2020-09-07 11:25 | P.PN ---
Subjective Progress Note Date: 09/07/20 Principal diagnosis: CC: Abdominal pain found to have appendicitis Patient states that his abdominal pain is better since admission. He states that the IV pain medicine is helping. Patient is scheduled for appendectomy today. Objective - Vital Signs Vital signs: Vital Signs Temp 98.1 F 09/07/20 07:51 Pulse 82 09/07/20 07:51 Resp 18 09/07/20 07:51 BP 113/65 09/07/20 07:51 Pulse Ox 93 L 09/07/20 07:51 Intake & Output 09/06/20 09/07/20 09/07/20 18:59 06:59 18:59 Intake Total 200 600 Output Total 5 Balance 200 595 Intake: IV 600 Intake, IV Titration 200 Amount Piperacillin-Tazobactam 3 100 .375 gm In Sodium Chloride 0.9% 100 ml @ 25 mls/hr IVPB Q8H MARY Rx#: [id number] metroNIDAZOLE-NS PMX 500 100 mg In Saline 1 100ml.bag @ 100 mls/hr IVPB Q6HR MARY Rx#:[id number] Output: Estimated Blood Loss 5 Other: Voiding Method Toilet Toilet Toilet # Voids 3 - Exam General examination - Alert and Oriented 3 in NAD Heart - + S1S2 no murmurs Lungs - Clear to auscultation Abdomen tenderness to palpate in the right lower quadrant Extremities - No edema 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 Psych - Calm and cooperative - Labs CBC & Chem 7: 09/07/20 05:10 09/07/20 05:10 Labs: Abnormal Lab Results - Last 24 Hours (Table) 09/06/20 09/07/20 09/07/20 Range/Units 12: 05:10 05:10 WBC 24.3 H 18.5 H (3.8-10.6) k/uL RBC 4.27 L 3.95 L (4.30-5.90) m/uL Hgb 11.8 L (13.0-17.5) gm/dL Hct 38.7 L 36.2 L (39.0-53.0) % Neutrophils # 22.2 H 16.8 H (1.3-7.7) k/uL Calcium 7.9 L (8.7-10.3) mg/dL AST 13 L (14-35) U/L Total Protein 5.0 L (6.2-8.2) g/dL Albumin 3.30 L (3.80-4.90) g/dL Assessment and Plan Assessment: #Acute appendicitis IV antibiotic per general surgery on Unasyn IV fluid hydration Pain control Patient will be going for an appendectomy today Patient is full code Thank you for allowing us to participate in the care of this patient. . Do not hesitate to contact us with questions. Someone can be reached from the [facility] hospitalist group at all hours of the day at [phone].
[2020-09-07] MEDS: HYDROmorphone 0.5 MG/0.5 ML SYRINGE IVP ONE ×2 (11:37→11:48)
--- NOTE | 2020-09-07 11:37 | P.OP ---
Date of Procedure: 09/07/20 Description of Procedure: SURGEON: ARMIN JAIME MD RAILWAY SIGNAL ELECTRICIAN: None. PREOPERATIVE DIAGNOSES: 1. Acute appendicitis. 2. Abnormal computed tomography scan for appendicitis 3. Leukocytosis 4. Tachycardia 5. Sepsis 6. Coronavirus negative serology POSTOPERATIVE DIAGNOSES: 1. Acute appendicitis with periappendicitis without rupture without peritonitis 2. Abnormal computed tomography scan for appendicitis 3. Leukocytosis 4. Tachycardia 5. Sepsis 6. Ileus 7. Coronavirus negative serology PROCEDURES PERFORMED: 1. Laparoscopic appendectomy ANESTHESIA: General with local ESTIMATED BLOOD LOSS: 5 mL. SPECIMENS REMOVED: Appendix. COMPLICATIONS: None. Condition: stable Disposition: floor OPERATIVE FINDINGS: 1. Acute appendicitis with periappendicitis involving tip and body of appendix dilated appendix without rupture. 2. Ileus with gaseous distention of colon INDICATIONS: The patient is a 65-year-old male who presents with acute appendicitis, including low-grade temperature, leukocytosis over 20,000, tachycardia consistent with sepsis per sepsis calculator. Patient was treated with IV antibiotics and urgent surgical intervention was described. Benefits and risks, including possibility of open technique, placement of drain, prolonged hospitalization were described at length. Informed consent was obtained. DESCRIPTION OR PROCEDURE: Patient was brought to the operating room, laid in supine position. After general induction, the abdomen was prepped and draped in standard sterile fashion. Prior to incision, a timeout protocol was confirmed with surgical team regarding patient's name including procedure to be performed. Preoperative medications were given intraoperatively. Additionally, bilateral SCDs were placed. A left upper quadrant incision was made after localizing the skin with anesthetic. A 0 degree 5 mm laparoscopic trocar entry was performed and entered into the peritoneal cavity. The abdomen was insufflated to 15 mmHg of pressure, which he tolerated well. Diagnostic laparoscopy demonstrated no injury to bowel, viscera or mesentery. A 5 mm port was placed just above the pubis. A separate 12 mm port was placed at the left lateral abdominal wall under direct visualization. The patient was placed in Trendelenburg position with the right side up. A systematic view within the abdominal cavity was started with the small bowel with dense inflammatory process on the right lower quadrant involving the omentum, terminal ileum. The base of the cecum was without inflammation. The tip including body of the appendix was inflamed with periappendicitis and embedded into the surrounding tissues. Using blunt dissection with a Kitner, the appendix was dissected free from surrounding tissue also using Harmonic scalpel. A 45 mm Endo LOTTIE echelon stapler was fired using a york vascular load. A 45-mm staple loads were used for complete division of the base of the appendix. Staple line was hemostatic. The specimen was removed through the 12 mm trocar. No bleeding was found along the right lower quadrant. The 12 mm trocar site was oversewn using 0 Vicryl and Luke Mason. All instruments and pneumoperitoneum were evacuated from the abdominal cavity. Local anesthetic was infiltrated in all wounds for postop analgesia. Liquid glue was applied to the skin after reapproximating the incisions with 4-0 Monocryl as described. At the end of the procedure, needle, sponge, and instrument count was verified correct by it technician. The patient had tolerated the procedure well, was taken to the postanesthesia care unit in stable condition. Intraoperative findings were discussed over the telephone with his Venus due to coronavirus restrictions.
[2020-09-07] MEDS: ENOXAPARIN 30 MG/0.3 ML SYRINGE SQ SCH (14:28)
[2020-09-08] MEDS: ACETAMINOPHEN TAB 500 MG TAB PO SCH ×4 (05:04→23:31)
[2020-09-08] MEDS: metroNIDAZOLE-NS PMX 500 MG in SALINE 1 100ML.BAG IVPB SCH ×4 (05:05→23:15)
[2020-09-08] MEDS: PIPERACILLIN-TAZOBACTAM 3.375 GM in SODIUM CHLORIDE 0.9% 100 ML IVPB SCH ×3 (05:05→19:06)
[2020-09-08] MEDS: KETOROLAC 15 MG/ML 1 ML VIAL IVP SCH ×4 (05:05→23:32)
[2020-09-08] MEDS: PANTOPRAZOLE 40 MG/10 ML VIAL IV SCH (07:07)
[2020-09-08 07:34] LABS: Basophils % (A) 0 %; Eosinophils % (A) 0 %; HCT 32.3 % (39.0-53.0); HGB 10.8 gm/dL (13.0-17.5); Lymphocytes # (A) 0.8 k/uL (1.0-4.8); Lymphocytes % (A) 4 %; MCH 31.1 pg (25.0-35.0); MCHC 33.6 g/dL (31.0-37.0); MCV 92.8 fL (80.0-100.0); Mean Platelet Volume 7.6; Monocytes # (A) 0.4 k/uL (0-1.0); Monocytes % (A) 2 %; Neutrophils # (A) 16.7 k/uL (1.3-7.7); Neutrophils % (A) 93 %; Platelet Count 199 k/uL (150-450); RBC 3.48 m/uL (4.30-5.90); RDW 12.7 % (11.5-15.5)
[2020-09-08 09:50] LABS: Albumin 3.3 g/dL (3.80-4.90); Albumin/Globulin Ratio 1.83 (1.60-3.17); Anion Gap 4.9 mmol/L (4.00-12.00); Calcium 7.9 mg/dL (8.7-10.3); Carbon Dioxide 24.1 mmol/L (21.6-31.8); Globulin 1.8 g/dL (1.6-3.3); Non-African American GFR(CKD) 90.6 (60.0-200.0); Potassium 3.8 mmol/L (3.5-5.5); Total Bilirubin 0.4 mg/dL (0.3-1.2); Total Protein 5.1 g/dL (6.2-8.2)
--- NOTE | 2020-09-08 10:25 | P.PN ---
Subjective Progress Note Date: 09/08/20 CHIEF COMPLAINT: Sepsis HISTORY OF PRESENT ILLNESS: The patient is a 65-year-old male who presented with sepsis and appendicitis. His abdominal pain is stable. REVIEW OF ORGAN SYSTEMS: PHYSICAL EXAMINATION: GENERAL: A 65-year-old male in no acute distress. HEENT: No sclera icterus. Extraocular movements grossly intact. Moist buccal mucosa. Head is atraumatic, normocephalic. Hears conversational speech. No nasal drainage. NECK: Supple without lymphadenopathy. No JV distention. CHEST: Non-labored respirations and equal bilateral excursions. CARDIOVASCULAR: Regular rate and rhythm. Palpable 2+ radial pulses. ABDOMEN: Dressing intact. MUSCULOSKELETAL: No clubbing, cyanosis or edema. NEUROLOGIC: No focal or lateralizing signs. PSYCH: Appropriate affect. Alert and oriented to person, place and time. SKIN: Well perfused. Good skin turgor. LABS: Reviewed. White blood cell count elevated over 21,000, now 18,000 ASSESSMENT: 1. Sepsis 2. Appendicitis PLAN: 1. Continue full hospitalization for sepsis 2. Continue IV antibiotics 3. Consult infectious disease for management Objective - Vital Signs Vital signs: Vital Signs Temp 97.5 F L 09/08/20 07:56 Pulse 65 09/08/20 07:56 Resp 16 09/08/20 07:56 BP 105/55 09/08/20 07:56 Pulse Ox 94 L 09/08/20 07:56 Intake & Output 09/07/20 09/08/20 09/08/20 18:59 06:59 18:59 Intake Total 600 300 Output Total 5 Balance 595 300 Weight 85.729 kg Intake: IV 600 Intake, IV Titration 300 Amount Piperacillin-Tazobactam 3 200 .375 gm In Sodium Chloride 0.9% 100 ml @ 25 mls/hr IVPB Q8H MARY Rx#: [id number] metroNIDAZOLE-NS PMX 500 100 mg In Saline 1 100ml.bag @ 100 mls/hr IVPB Q6HR MARY Rx#:[id number] Output: Estimated Blood Loss 5 Other: Voiding Method Toilet Toilet Toilet # Voids 1 1 - Labs CBC & Chem 7: 09/08/20 07:04 09/08/20 07:04 Labs: Abnormal Lab Results - Last 24 Hours (Table) 09/08/20 09/08/20 Range/Units 07:04 07:04 WBC 18.0 H (3.8-10.6) k/uL RBC 3.48 L (4.30-5.90) m/uL Hgb 10.8 L (13.0-17.5) gm/dL Hct 32.3 L (39.0-53.0) % Neutrophils # 16.7 H (1.3-7.7) k/uL Lymphocytes # 0.8 L (1.0-4.8) k/uL Glucose 112 H (70-110) mg/dL Calcium 7.9 L (8.7-10.3) mg/dL Total Protein 5.1 L (6.2-8.2) g/dL Albumin 3.30 L (3.80-4.90) g/dL Assessment and Plan (1) Acute appendicitis Current Visit: Yes Status: Acute Code(s): K35.80 - UNSPECIFIED ACUTE AP PENDICITIS SNOMED Code(s): 17270353
--- NOTE | 2020-09-08 13:12 | P.PN ---
Subjective Progress Note Date: 09/08/20 Principal diagnosis: CC: Abdominal pain found to have appendicitis Patient stated that he is passing gas. He states that after the procedure his abdominal pain has resolved. Patient stated that he has been tolerating his diet well. Objective - Vital Signs Vital signs: Vital Signs Temp 97.5 F L 09/08/20 07:56 Pulse 65 09/08/20 07:56 Resp 16 09/08/20 07:56 BP 105/55 09/08/20 07:56 Pulse Ox 94 L 09/08/20 07:56 Intake & Output 09/07/20 09/08/20 09/08/20 18:59 06:59 18:59 Intake Total 600 300 Output Total 5 Balance 595 300 Weight 85.729 kg Intake: IV 600 Intake, IV Titration 300 Amount Piperacillin-Tazobactam 3 200 .375 gm In Sodium Chloride 0.9% 100 ml @ 25 mls/hr IVPB Q8H MARY Rx#: [id number] metroNIDAZOLE-NS PMX 500 100 mg In Saline 1 100ml.bag @ 100 mls/hr IVPB Q6HR MARY Rx#:[id number] Output: Estimated Blood Loss 5 Other: Voiding Method Toilet Toilet Toilet # Voids 1 1 - Exam General examination - Alert and Oriented 3 in NAD Heart - + S1S2 no murmurs Lungs - Clear to auscultation Abdomen surgical incisions are intact, no tenderness to palpation Extremities - No edema 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 Psych - Calm and cooperative - Labs CBC & Chem 7: 09/08/20 07:04 09/08/20 07:04 Labs: Abnormal Lab Results - Last 24 Hours (Table) 09/08/20 09/08/20 Range/Units 07:04 07:04 WBC 18.0 H (3.8-10.6) k/uL RBC 3.48 L (4.30-5.90) m/uL Hgb 10.8 L (13.0-17.5) gm/dL Hct 32.3 L (39.0-53.0) % Neutrophils # 16.7 H (1.3-7.7) k/uL Lymphocytes # 0.8 L (1.0-4.8) k/uL Glucose 112 H (70-110) mg/dL Calcium 7.9 L (8.7-10.3) mg/dL Total Protein 5.1 L (6.2-8.2) g/dL Albumin 3.30 L (3.80-4.90) g/dL Assessment and Plan Assessment: #Acute appendicitis IV antibiotic per general surgery on Unasyn IV fluid hydration Pain control Patient will be going for an appendectomy today WBC still elevated Gen. surgery has consulted infectious disease to manage antibiotics Patient is full code Thank you for allowing us to participate in the care of this patient. . Do not hesitate to contact us with questions. Someone can be reached from the [facility] hospitalist group at all hours of the day at [phone].
[2020-09-08] MEDS: ENOXAPARIN 30 MG/0.3 ML SYRINGE SQ SCH (13:18)
--- NOTE | 2020-09-08 19:07 | CONS ---
CONSULTATION DATE OF SERVICE: 09/08/2020. REASON FOR CONSULTATION: Sepsis and antibiotic management. HISTORY OF PRESENT ILLNESS: The patient is a 65-year-old male presenting to the ER 2 days ago early in the morning for evaluation of abdominal pain. The patient's pain has been acute in onset, started early the day before he presented to the hospital. The pain has been mostly in the abdominal area with intensity of almost 8 out of 10 in severity. When the pain continued to get worse, he presented to the ER and has been mostly consolidated on the right lower quadrant. Did have one episode of vomiting. Unable to keep anything down. With these symptoms, the patient presented to hospital. On arrival to the ER, the patient did have a low-grade fever of 99.4. Subsequently, the patient's fever has resolved. The patient did have tachycardia, heart rate of 108. The patient's white count was initially 21, subsequently white count 24.3, however has been 18,000 that has prompted this infectious disease consultation. The patient was taken to the OR yesterday morning. This patient with evidence of acute appendicitis with periappendicitis without rupture or peritonitis and the patient is status post laparoscopic appendectomy, currently being treated with Zosyn and Flagyl. REVIEW OF SYSTEMS: Positive points have been mentioned in HPI. Rest of systems are negative. PAST MEDICAL HISTORY: Hyperlipidemia and rectal bleeding, chronic back pain. PAST SURGICAL HISTORY: Laminectomy, right knee surgery and colonoscopy. SOCIAL HISTORY: Remote history of smoking. The patient drinks. No drug use. FAMILY HISTORY: Father history of cancer. ALLERGIES: No known drug allergies. MEDICATIONS: Include the patient is currently on Tylenol, Lovenox, Dilaudid, Toradol, Flagyl, Narcan, Zofran, Protonix and Zosyn. PHYSICAL EXAMINATION: Blood pressure 105/64 with pulse of 75, temperature 97.9. He is 94% on room air. General description: The patient is a middle-aged male lying in bed in no distress. No tachypnea or accessory muscles of respiration use. HEENT: Shows slight pallor. No scleral icterus. Oral mucous membranes dry. Neck: Trachea central. No thyromegaly. Lungs: Unlabored breathing. Clear to auscultation anteriorly. No wheeze or crackles. Heart S1, S2. Regular rate and rhythm. Abdomen soft, mildly distended. No guarding or rigidity. Extremities are no edema of the feet. Skin examination: No rash or mass palpable. Neurological: Patient is awake, alert, oriented times three. Mood and affect normal. LABS: Hemoglobin is 10.1, white count 18,000. BUN of 8, creatinine 0.9. DIAGNOSTIC IMPRESSION AND PLAN: Patient admitted to the hospital with sepsis, source of acute appendicitis with periappendicitis, but no evidence of any peritonitis or drainable abscess status post appendectomy. This patient's elevated white count more likely open appendix and need to cover for enteric gram-negative both aerobes and anaerobes. PLAN: 1. We will keep the patient on Zosyn 3.375 g IV q.8 hours. 2. If the patient has any worsening of the white count, new fever, we will repeat cultures. 3. We will follow on clinical condition and adjust the medication further if needed. Thank you for this consultation. We will follow the patient along with you. MMODL / IJN: [id number] /
[2020-09-09] MEDS: PIPERACILLIN-TAZOBACTAM 3.375 GM in SODIUM CHLORIDE 0.9% 100 ML IVPB SCH ×3 (05:11→19:46)
[2020-09-09] MEDS: KETOROLAC 15 MG/ML 1 ML VIAL IVP SCH ×4 (05:11→23:02)
[2020-09-09] MEDS: metroNIDAZOLE-NS PMX 500 MG in SALINE 1 100ML.BAG IVPB SCH ×2 (05:11→11:46)
[2020-09-09] MEDS: ACETAMINOPHEN TAB 500 MG TAB PO SCH ×4 (05:17→23:02)
[2020-09-09 06:56] LABS: Basophils % (A) 0 %; Eosinophils # (A) 0.4 k/uL (0-0.7); Eosinophils % (A) 4 %; HCT 32.1 % (39.0-53.0); HGB 10.8 gm/dL (13.0-17.5); Lymphocytes # (A) 1.4 k/uL (1.0-4.8); Lymphocytes % (A) 12 %; MCH 30.8 pg (25.0-35.0); MCHC 33.4 g/dL (31.0-37.0); MCV 92.1 fL (80.0-100.0); Mean Platelet Volume 8.2; Monocytes # (A) 0.4 k/uL (0-1.0); Monocytes % (A) 4 %; Neutrophils # (A) 9.5 k/uL (1.3-7.7); Neutrophils % (A) 80 %; Platelet Count 229 k/uL (150-450); RBC 3.49 m/uL (4.30-5.90); RDW 12.9 % (11.5-15.5); WBC 11.8 k/uL (3.8-10.6)
[2020-09-09] MEDS: PANTOPRAZOLE 40 MG/10 ML VIAL IV SCH (09:22)
[2020-09-09 09:51] LABS: African American GFR (CKD) 110.2 (60.0-200.0); Albumin 3.2 g/dL (3.80-4.90); Albumin/Globulin Ratio 1.88 (1.60-3.17); Anion Gap 1.8 mmol/L (4.00-12.00); BUN/Creat Ratio 22.5 Ratio (12.00-20.00); Calcium 7.7 mg/dL (8.7-10.3); Carbon Dioxide 26.2 mmol/L (21.6-31.8); Globulin 1.7 g/dL (1.6-3.3); Non-African American GFR(CKD) 95.1 (60.0-200.0); Potassium 3.5 mmol/L (3.5-5.5); Total Bilirubin 0.6 mg/dL (0.3-1.2); Total Protein 4.9 g/dL (6.2-8.2)
--- NOTE | 2020-09-09 10:17 | P.PN ---
Subjective Progress Note Date: 09/09/20 Principal diagnosis: CC: Abdominal pain found to have appendicitis Patient says that he has good bowel movement and he is tolerating his diet well. He states that he would like to go home Objective - Vital Signs Vital signs: Vital Signs Temp 99.1 F 09/09/20 07:02 Pulse 61 09/09/20 07:02 Resp 17 09/09/20 07:02 BP 130/80 09/09/20 07:02 Pulse Ox 90 L 09/09/20 07:02 Intake & Output 09/08/20 09/09/20 09/09/20 18:59 06:59 18:59 Intake Total 100 180 Balance 100 180 Intake: Intake, IV Titration 100 Amount metroNIDAZOLE-NS PMX 500 100 mg In Saline 1 100ml.bag @ 100 mls/hr IVPB Q6HR MARY Rx#:[id number] Oral 180 Other: Voiding Method Toilet Toilet # Voids 2 2 - Exam General examination - Alert and Oriented 3 in NAD Heart - + S1S2 no murmurs Lungs - Clear to auscultation Abdomen surgical incisions are intact, no tenderness to palpation Extremities - No edema [employer]OR[employer] - Moving all 4 extremities spontaneously Psych - Calm and cooperative - Labs CBC & Chem 7: 09/09/20 06:37 09/09/20 06:37 Labs: Abnormal Lab Results - Last 24 Hours (Table) 09/09/20 09/09/20 Range/Units 06:37 06:37 WBC 11.8 H (3.8-10.6) k/uL RBC 3.49 L (4.30-5.90) m/uL Hgb 10.8 L (13.0-17.5) gm/dL Hct 32.1 L (39.0-53.0) % Neutrophils # 9.5 H (1.3-7.7) k/uL Chloride 113 H (96-109) mmol/L Anion Gap 1.80 L (4.00-12.00) mmol/L BUN/Creatinine Ratio 22.50 H (12.00-20.00) Ratio Calcium 7.7 L (8.7-10.3) mg/dL AST 60 H (14-35) U/L Total Protein 4.9 L (6.2-8.2) g/dL Albumin 3.20 L (3.80-4.90) g/dL Assessment and Plan Assessment: #Acute appendicitis Antibody recommendations as per infectious disease IV fluid hydration Pain control Patient will be going for an appendectomy today WBC improved Patient is stable for discharge from a medical standpoint. Antibiotics as per infectious disease. Patient is full code Thank you for allowing us to participate in the care of this patient. . Do not hesitate to contact us with questions. Someone can be reached from the [facility] hospitalist group at all hours of the day at [phone].
--- NOTE | 2020-09-09 13:20 | P.PN ---
Subjective Progress Note Date: 09/09/20 CHIEF COMPLAINT: Sepsis HISTORY OF PRESENT ILLNESS: The patient is a 65-year-old male who presented with sepsis and appendicitis. He is postop day 2 following appendectomy. White count still elevated over 11,000. He is on antibiotics. Abdominal pain is improved. REVIEW OF ORGAN SYSTEMS: No dyspnea or shortness of breath. No fevers or chills. PHYSICAL EXAMINATION: GENERAL: A 65-year-old male in no acute distress. HEENT: No sclera icterus. Extraocular movements grossly intact. Moist buccal mucosa. Head is atraumatic, normocephalic. Hears conversational speech. No nasal drainage. NECK: Supple without lymphadenopathy. No JV distention. CHEST: Non-labored respirations and equal bilateral excursions. CARDIOVASCULAR: Regular rate and rhythm. Palpable 2+ radial pulses. ABDOMEN: Incisions intact. MUSCULOSKELETAL: No clubbing, cyanosis or edema. NEUROLOGIC: No focal or lateralizing signs. PSYCH: Appropriate affect. Alert and oriented to person, place and time. SKIN: Well perfused. Good skin turgor. LABS: Reviewed. White blood cell count elevated over 21,000 to 18,000, now over 11,000. ASSESSMENT: 1. Sepsis 2. Appendicitis PLAN: 1. Continue IV antibiotics. 2. Discharge pending resolution of leukocytosis in the setting of sepsis 3. Appreciate infectious disease consultation Objective - Vital Signs Vital signs: Vital Signs Temp 99.1 F 09/09/20 07:02 Pulse 61 09/09/20 07:02 Resp 17 09/09/20 07:02 BP 130/80 09/09/20 07:02 Pulse Ox 90 L 09/09/20 07:02 Intake & Output 09/08/20 09/09/20 09/09/20 18:59 06:59 18:59 Intake Total 100 180 Balance 100 180 Intake: Intake, IV Titration 100 Amount metroNIDAZOLE-NS PMX 500 100 mg In Saline 1 100ml.bag @ 100 mls/hr IVPB Q6HR MARY Rx#:[id number] Oral 180 Other: Voiding Method Toilet Toilet # Voids 2 2 - Labs CBC & Chem 7: 09/09/20 06:37 09/09/20 06:37 Labs: Abnormal Lab Results - Last 24 Hours (Table) 09/09/20 09/09/20 Range/Units 06:37 06:37 WBC 11.8 H (3.8-10.6) k/uL RBC 3.49 L (4.30-5.90) m/uL Hgb 10.8 L (13.0-17.5) gm/dL Hct 32.1 L (39.0-53.0) % Neutrophils # 9.5 H (1.3-7.7) k/uL Chloride 113 H (96-109) mmol/L Anion Gap 1.80 L (4.00-12.00) mmol/L BUN/Creatinine Ratio 22.50 H (12.00-20.00) Ratio Calcium 7.7 L (8.7-10.3) mg/dL AST 60 H (14-35) U/L Total Protein 4.9 L (6.2-8.2) g/dL Albumin 3.20 L (3.80-4.90) g/dL Assessment and Plan (1) Acute appendicitis Current Visit: Yes Status: Acute Code(s): K35.80 - UNSPECIFIED ACUTE APPENDICITIS SNOMED Code(s): 94655762
[2020-09-09] MEDS: ENOXAPARIN 30 MG/0.3 ML SYRINGE SQ SCH (13:39)
--- NOTE | 2020-09-09 15:21 | PN ---
PROGRESS NOTE DATE OF SERVICE: 09/09/2020 REASON FOR FOLLOWUP: Acute appendicitis, elevated white count. INTERVAL HISTORY: The patient is currently afebrile. Patient is feeling better. Overall abdominal pain is currently controlled. No chest pain, shortness of breath or cough. No vomiting no diarrhea. PHYSICAL EXAMINATION: Blood pressure 130/80 with a pulse of 61, temperature 99.1. He is 90% on room air. General description is a middle-aged male lying in bed in no distress. RESPIRATORY SYSTEM: Unlabored breathing, clear to auscultation anteriorly. HEART: S1, S2. Regular rate and rhythm. ABDOMEN: Soft. No tenderness. Mild distention. No guarding or rigidity. LABS: Hemoglobin 10.8, white 11.8. BUN of 18, creatinine 0.8. DIAGNOSTIC IMPRESSION AND PLAN: Patient with acute appendicitis, status post laparoscopic appendectomy with no evidence of any perforation. Patient seemed to have shown overall clinical improvement. Plan is for oral Augmentin on discharge. Continue with supportive continue. MMODL / IJN: [id number] /
[2020-09-09] MEDS: metroNIDAZOLE 500 MG TAB PO SCH ×2 (17:56→20:39)
[2020-09-10] MEDS: KETOROLAC 15 MG/ML 1 ML VIAL IVP SCH (04:51)
[2020-09-10] MEDS: PIPERACILLIN-TAZOBACTAM 3.375 GM in SODIUM CHLORIDE 0.9% 100 ML IVPB SCH (04:51)
[2020-09-10] MEDS: ACETAMINOPHEN TAB 500 MG TAB PO SCH (04:51)
[2020-09-10] MEDS: metroNIDAZOLE 500 MG TAB PO SCH (06:46)
[2020-09-10 07:41] LABS: Basophils # (A) 0.1 k/uL (0-0.2); Basophils % (A) 1 %; Eosinophils # (A) 0.5 k/uL (0-0.7); Eosinophils % (A) 4 %; HCT 31.2 % (39.0-53.0); HGB 10.2 gm/dL (13.0-17.5); Lymphocytes # (A) 1.3 k/uL (1.0-4.8); Lymphocytes % (A) 13 %; MCH 30.1 pg (25.0-35.0); MCHC 32.7 g/dL (31.0-37.0); MCV 92.3 fL (80.0-100.0); Mean Platelet Volume 7.7; Monocytes # (A) 0.6 k/uL (0-1.0); Monocytes % (A) 5 %; Neutrophils # (A) 8.1 k/uL (1.3-7.7); Neutrophils % (A) 76 %; Platelet Count 227 k/uL (150-450); RBC 3.38 m/uL (4.30-5.90); RDW 12.7 % (11.5-15.5); WBC 10.6 k/uL (3.8-10.6)
[2020-09-10] MEDS ORDERED: ENOXAPARIN 40 MG/0.4 ML SYRINGE SQ SCH (09:00)
[2020-09-10] MEDS ORDERED: PANTOPRAZOLE 40 MG TABLET PO SCH (09:00)
[2020-09-10 09:09] VITALS: BP 123/76; PULSE 50; RESP 15; TEMP 97.8
--- NOTE | 2020-09-10 10:29 | P.PN ---
Subjective Progress Note Date: 09/10/20 CHIEF COMPLAINT: Sepsis HISTORY OF PRESENT ILLNESS: The patient is a 65-year-old male who presented with sepsis and appendicitis. He is postop day 3 following appendectomy. He has been on scheduled antibiotics due to presentation of sepsis. White blood cell count has now normalized. REVIEW OF ORGAN SYSTEMS: No dyspnea or shortness of breath. No fevers or chills. He had low oxygen saturation now improved PHYSICAL EXAMINATION: GENERAL: A 65-year-old male in no acute distress. HEENT: No sclera icterus. Extraocular movements grossly intact. Moist buccal mucosa. Head is atraumatic, normocephalic. Hears conversational speech. No nasal drainage. NECK: Supple without lymphadenopathy. No JV distention. CHEST: Non-labored respirations and equal bilateral excursions. CARDIOVASCULAR: Regular rate and rhythm. Palpable 2+ radial pulses. ABDOMEN: No cellulitis or infection. MUSCULOSKELETAL: No clubbing, cyanosis or edema. NEUROLOGIC: No focal or lateralizing signs. PSYCH: Appropriate affect. Alert and oriented to person, place and time. SKIN: Well perfused. Good skin turgor. LABS: Reviewed. White blood cell count elevated over 21,000 now 10,600 ASSESSMENT: 1. Sepsis 2. Appendicitis PLAN: 1. Patient may be discharged home 2. Per recommendations infectious disease, patient discharged home with Augmentin. Objective - Vital Signs Vital signs: Vital Signs Temp 98.7 F 09/10/20 01:48 Pulse 55 L 09/10/20 01:48 Resp 16 09/10/20 01:48 BP 124/69 09/10/20 01:48 Pulse Ox 94 L 09/10/20 01:48 Intake & Output 09/09/20 09/10/20 09/10/20 18:59 06:59 18:59 Intake Total 180 Balance 180 Intake: Oral 180 Other: Voiding Method Toilet # Voids 1 1 # Bowel Movements 1 1 - Labs CBC & Chem 7: 09/10/20 07:20 09/09/20 06:37 Labs: Abnormal Lab Results - Last 24 Hours (Table) 09/09/20 09/10/20 Range/Units 06:37 07:20 RBC 3.38 L (4.30-5.90) m/uL Hgb 10.2 L (13.0-17.5) gm/dL Hct 31.2 L (39.0-53.0) % Neutrophils # 8.1 H (1.3-7.7) k/uL Chloride 113 H (96-109) mmol/L Anion Gap 1.80 L (4.00-12.00) mmol/L BUN/Creatinine Ratio 22.50 H (12.00-20.00) Ratio Calcium 7.7 L (8.7-10.3) mg/dL AST 60 H (14-35) U/L Total Protein 4.9 L (6.2-8.2) g/dL Albumin 3.20 L (3.80-4.90) g/dL Assessment and Plan (1) Acute appendicitis Current Visit: Yes Status: Acute Code(s): K35.80 - UNSPECIFIED ACUTE CONSTANCE ENDICITIS SNOMED Code(s): 72773981
--- NOTE | 2020-09-10 10:34 | P.DS ---
Providers Date of admission: 09/07/20 11:38 Expected date of discharge: 09/10/20 Attending physician: Sophie Warren Consults: 09/06/20 02:41 Consult Physician Routine Consulting Provider: Chau Nova Consult Reason/Comments: medManagement Do you want consulting provider notified?: Yes 09/08/20 10:25 Consult Physician Routine Consulting Provider: Priyanka Rider Consult Reason/Comments: Sepsis antibiotics management Do you want consulting provider notified?: Yes Primary care physician: Stated None - Discharge Diagnosis(es) (1) Acute appendicitis Current Visit: Yes Status: Acute (2) Sepsis Current Visit: Yes Status: Acute Hospital Course: HISTORY OF PRESENT ILLNESS: The patient is a 65-year-old male who presented with sepsis and appendicitis. He underwent appendectomy for presented with sepsis. He was hospitalized with antibiotics with infectious disease consultation for management of sepsis. Prior to discharge, he was afebrile. He was tolerating diet. White blood cell count was normal prior to discharge. PLAN: 1. Patient may be discharged home 2. Per recommendations infectious disease, patient discharged home with Augmentin. Procedures: POSTOPERATIVE DIAGNOSES: 1. Acute appendicitis with periappendicitis without rupture without peritonitis 2. Abnormal computed tomography scan for appendicitis 3. Leukocytosis 4. Tachycardia 5. Sepsis 6. Ileus 7. Coronavirus negative serology PROCEDURES PERFORMED: 1. Laparoscopic appendectomy ANESTHESIA: General with local ESTIMATED BLOOD LOSS: 5 mL. SPECIMENS REMOVED: Appendix. COMPLICATIONS: None. Condition: stable Disposition: floor OPERATIVE FINDINGS: 1. Acute appendicitis with periappendicitis involving tip and body of appendix dilated appendix without rupture. 2. Ileus with gaseous distention of colon Patient Condition at Discharge: Stable Plan - Discharge Summary New Discharge Prescriptions: New Amoxic-Pot Clav 875-125Mg [Augmentin 875-125] 1 tab PO BID 5 Days #10 tab Ibuprofen [Motrin] 600 mg PO Q8HR PRN #30 tab PRN Reason: Pain Acetaminophen Tab [Tylenol Tab] 1,000 mg PO Q6HR PRN #30 tablet Discharge Medication List Acetaminophen Tab [Tylenol Tab] 1,000 mg PO Q6HR PRN #30 tablet 09/10/20 [Rx] Amoxic-Pot Clav 875-125Mg [Augmentin 875-125] 1 tab PO BID 5 Days #10 tab 09/10/20 [Rx] Ibuprofen [Motrin] 600 mg PO Q8HR PRN #30 tab 09/10/20 [Rx] Follow up Appointment(s)/Referral(s): Sophie Warren MD [STAFF PHYSICIAN] - 09/17/20 None,Stated [Primary Care Provider] - 1-2 days Patient Instructions/Handouts: Appendicitis (GEN), Laparoscopic Appendectomy (DC) Activity/Diet/Wound Care/Special Instructions: No lifting over 10 pounds in 2 weeks until September 23January shower. No bath tub soaks for two weeks until Diet as tolerated. Use Tylenol and ibuprofen or Aleve scheduled for the next 24-48 hours for best pain relief. Use ice along incisions to prevent swelling. Discharge Disposition: HOME SELF-CARE
--- NOTE | 2020-09-10 10:35 | P.PN ---
Subjective Progress Note Date: 09/10/20 No new complaints. Objective - Vital Signs Vital signs: Vital Signs Temp 97.8 F 09/10/20 07:13 Pulse 50 L 09/10/20 07:13 Resp 15 09/10/20 07:13 BP 123/76 09/10/20 07:13 Pulse Ox 94 L 09/10/20 07:13 Intake & Output 09/09/20 09/10/20 09/10/20 18:59 06:59 18:59 Intake Total 180 180 Balance 180 180 Intake: Oral 180 180 Other: Voiding Method Toilet Toilet # Voids 1 1 # Bowel Movements 1 1 - Exam Gen: awake, alert HEENT: normocephalic, atraumatic, good hearing acuity, moist mucous membranes Resp: good air exchange, breathing comfortably with no accessory muscle use CVS: good distal perfusion x 4, GI: soft, NTTP, ND, well-healing laparoscopic scars : no SPT, no CVAT, suresh catheter not present MSK: no pitting edema, no clubbing Neuro: non-focal, moving all extremities Psych: cooperative, euthymic mood - Labs CBC & Chem 7: 09/10/20 07:20 09/09/20 06:37 Labs: Abnormal Lab Results - Last 24 Hours (Table) 09/10/20 Range/Units 07:20 RBC 3.38 L (4.30-5.90) m/uL Hgb 10.2 L (13.0-17.5) gm/dL Hct 31.2 L (39.0-53.0) % Neutrophils # 8.1 H (1.3-7.7) k/uL Assessment and Plan Assessment: #Acute appendicitis Antibody recommendations as per infectious disease IV fluid hydration Pain control Patient will be going for an appendectomy today WBC improved Patient is stable for discharge from a medical standpoint. Antibiotics as per infectious disease. Patient is full code Thank you for allowing us to participate in the care of this patient. . Do not hesitate to contact us with questions. Someone can be reached from the [facility] hospitalist group at all hours of the day at [phone].
== END 2020-09-10 11:51 | disposition home or self-care (01) | DRG 854 ==
LOC: EC 00:03 → 5NMEDONC 02:41 → OBSVTOIN 09-07 11:38
PROVIDERS: ADMIT Surgery Plastic and Reconstructive Surgery; ATTEND Surgery Plastic and Reconstructive Surgery
PROC: 0DTJ4ZZ Resection of Appendix, Percutaneous Endoscopic Approach (ICD-10-PCS; principal; 2020-09-07 10:00)
DX: A41.9 Sepsis, unspecified organism (principal); K35.80 Unspecified acute appendicitis; K56.7 Ileus, unspecified; E78.5 Hyperlipidemia, unspecified; Z20.828 Contact with and (suspected) exposure to other viral communicable diseases; K64.9 Unspecified hemorrhoids; Z87.891 Personal history of nicotine dependence; Z98.890 Other specified postprocedural states; Z80.9 Family history of malignant neoplasm, unspecified
CPT/HCPCS: 36415; 74177; 80053; 81001; 82150; 82550; 83605; 83690; 83735; 85025; 87635; 88304; 93005; 96361; 96374; 96375; 99285

== ENCOUNTER → 2021-11-04 | Outpatient (CLI) | payer BC | END | disposition home or self-care (01) | LOC: LABPAT 11:12 | PROVIDERS: ATTEND Surgery Plastic and Reconstructive Surgery | DX: Z53.9 Procedure and treatment not carried out, unspecified reason (principal) ==

== ENCOUNTER 2021-12-11 10:51 | Inpatient (IN) | payer BC ==
[2021-12-08 09:54] VITALS: BMI 25.1
--- NOTE | 2021-12-11 09:02 | P.GSHP ---
History of Present Illness H&P Date: 12/11/21 CHIEF COMPLAINT: Inguinal hernia, bilateral HISTORY OF PRESENT ILLNESS: The patient is a 66-year-old male who presents with a history of swelling and pain along the groins. He's noted increased swelling including pain of the area. Now he presents for repair of his inguinal hernia. PAST MEDICAL HISTORY: Please see list. PAST SURGICAL HISTORY: Please see list. MEDICATIONS: Please see list. ALLERGIES: Please see list. SOCIAL HISTORY: No illicit drug use FAMILY HISTORY: No reports of Crohn disease or ulcerative colitis. REVIEW OF ORGAN SYSTEMS: CONSTITUTIONAL: No reports of fevers or chills. No reports of weight loss despite prior attempts. GI: Denies any blood in stools or constipation. PHYSICAL EXAM: VITAL SIGNS: Stable GENERAL: Well-developed pleasant male in no acute distress. HEENT: No scleral icterus. Extraocular movements grossly intact. Moist buccal mucosa. NECK: Supple without lymphadenopathy. CHEST: Unlabored respirations. Equal bilateral excursions. CARDIOVASCULAR: Regular rate and rhythm. Distal 2+ pulses. ABDOMEN: Soft, nondistended. No peritoneal signs. Palpable defect of the groin MUSCULOSKELETAL: No clubbing, cyanosis, or edema. ASSESSMENT: 1. Inguinal hernia, bilateral PLAN: 1. Recommend proceeding with a robotic inguinal repair with mesh with bilateral approach. 2. Benefits and risks of surgical intervention was discussed including possibility of open technique. 3. DVT prophylaxis. 4. Antibiotic prophylaxis. 5. Nonnecrotic pain management. 6. Regional block described Past Medical History Past Medical History: No Reported History, Hyperlipidemia Additional Past Medical History / Comment(s): yung inguinal hernia, hx History of Any Multi-Drug Resistant Organisms: None Reported Past Surgical History: Appendectomy, Back Surgery, Orthopedic Surgery Additional Past Surgical History / Comment(s): left knee surgery as teen, laminectomy, colonoscopy Past Anesthesia/Blood Transfusion Reactions: No Reported Reaction Smoking Status: Former smoker - Past Family History Father Family Medical History: Cancer Additional Family Medical History / Comment(s): lung cancer Medications and Allergies Home Medications Medication Instructions Recorded Confirmed Type No Known Home Medications 12/08/21 12/08/21 History Allergies Allergy/AdvReac Type Severity Reaction Status Date / Time No Known Allergies Allergy Verified 12/08/21 09:48
[~2021-12-11 10:51] MED LIST changes: +ACETAMINOPHEN TAB 500 MG TAB PO PRN; +DEXAMETHASONE SOD PHOSPHATE 4 MG/ML 1 ML VIAL IV ONE; +HEPARIN SODIUM,PORCINE/PF 5,000 UNIT/0.5 ML SYRINGE SQ PRN; -LACTATED RINGERS 1,000 ML IV SCH; +MELOXICAM 7.5 MG TAB PO PRN; +ONDANSETRON 4 MG/2 ML VIAL IVP ONE; +TAMSULOSIN 0.4 MG CAP.ER.24H PO PRN
[2021-12-11] MEDS: LACTATED RINGERS 1,000 ML IV SCH (11:37)
[2021-12-11 11:47] LABS: Glucose,Whole Blood 85 mg/dL (75-99)
[2021-12-11 11:58] LABS: Basophils # (A) 0.1 k/uL (0-0.2); Basophils % (A) 1 %; Eosinophils # (A) 0.5 k/uL (0-0.7); Eosinophils % (A) 5 %; HGB 14.6 gm/dL (13.0-17.5); Lymphocytes # (A) 1.9 k/uL (1.0-4.8); Lymphocytes % (A) 20 %; MCH 29.1 pg (25.0-35.0); MCHC 32.5 g/dL (31.0-37.0); MCV 89.5 fL (80.0-100.0); Mean Platelet Volume 7.1; Monocytes # (A) 0.4 k/uL (0-1.0); Monocytes % (A) 4 %; Neutrophils # (A) 6.4 k/uL (1.3-7.7); Neutrophils % (A) 68 %; Platelet Count 248 k/uL (150-450); RBC 5.03 m/uL (4.30-5.90); RDW 14.8 % (11.5-15.5); WBC 9.4 k/uL (3.8-10.6)
[2021-12-11 12:08] LABS: ALT 13 U/L (4-49); AST 17 U/L (17-59); African American GFR (CKD) >90 (>60 ml/min/1.73 sqM); Albumin 3.9 g/dL (3.5-5.0); Alkaline Phosphatase 73 U/L (38-126); Anion Gap 6 mmol/L; Blood Urea Nitrogen 14 mg/dL (9-20); Calcium 8.7 mg/dL (8.4-10.2); Carbon Dioxide 25 mmol/L (22-30); Chloride 107 mmol/L (98-107); Glucose 87 mg/dL (74-99); Non-African American GFR(CKD) >90 (>60 ml/min/1.73 sqM); Potassium 4.2 mmol/L (3.5-5.1); Sodium 138 mmol/L (137-145); Total Bilirubin 0.7 mg/dL (0.2-1.3); Total Protein 6.8 g/dL (6.3-8.2)
[2021-12-11] MEDS ORDERED: fentaNYL (PF) 50 MCG/ML 2 ML AMP IVP ONE (13:02)
[2021-12-11] MEDS ORDERED: MIDAZOLAM 2 MG/2 ML VIAL IVP ONE (13:02)
--- NOTE | 2021-12-11 13:23 | P.ANPRN ---
Procedure Note - Anesthesia - Nerve Block Performed Bilateral Erector Spinae Single Time Out Performed: Yes Date of Procedure: 12/11/21 Procedure Start Time: 13:02 Procedure Stop Time: 13:11 Location of Patient: PreOp Indication: Requested by Surgeon Specifically requested for management of pain by DrMin: Sophie Warren Sedation Type: Sedate with meaningful contact maintained Preparation: Sterile Prep Position: Prone Needle Types: Pajunk Needle Gauge: 21 Ultrasound used to visualize needle placement: Yes Ultrasound used to observe medication spread: Yes Injectate: 0.5% Ropivacaine (see comment for volume) (15 ml + 15 ml NS per side) Blood Aspirated: No Pain Paresthesia on Injection Noted: No Resistance on Injection: Normal Image Stored and Saved: Yes Events: Uneventful and Well Tolerated
[2021-12-11] MEDS ORDERED: SODIUM CHLORIDE 0.9% (PF) 10 ML VIAL ONE (13:55)
[2021-12-11] MEDS ORDERED: MIDAZOLAM 2 MG/2 ML VIAL ONE (13:55)
[2021-12-11] MEDS ORDERED: SUCCINYLCHOLINE CHLORIDE 100 MG/5 ML SYR IV ONE (13:55)
[2021-12-11] MEDS ORDERED: ROCURONIUM 10 MG/ML (5 ML VIAL) IV ONE (13:55)
[2021-12-11] MEDS ORDERED: PROPOFOL 10 MG/ML 20 ML VIAL IV ONE (13:55)
[2021-12-11] MEDS ORDERED: HYDROmorphone (PF) 1 MG/ML ONE (13:55)
[2021-12-11] MEDS ORDERED: fentaNYL (PF) 50 MCG/ML 2 ML AMP ONE (13:55)
[2021-12-11] MEDS ORDERED: GLYCOPYRROLATE 0.2 MG/ML 2 ML VIAL ONE (13:55)
[2021-12-11] MEDS ORDERED: NEOSTIGMINE 1 MG/ML 10 ML VIAL ONE (13:55)
[2021-12-11] MEDS ORDERED: ROPIVACAINE 5 MG/ML 30 ML VIAL ONE (13:55)
[2021-12-11] MEDS ORDERED: LIDOCAINE 1% INJ 10MG/ML (20 ML MDV) ONE (13:55)
[2021-12-11] MEDS ORDERED: BUPIVACAIN-EPI 0.25%-1:200,000 30 ML VIAL SQ ONE (14:28)
[2021-12-11] MEDS ORDERED: LACTATED RINGERS 1,000 ML IV ONE (15:48)
[2021-12-11] MEDS ORDERED: ONDANSETRON 4 MG/2 ML VIAL IVP PRN (18:07)
[2021-12-11] MEDS ORDERED: NALOXONE 0.4 MG/ML 1 ML VIAL IV PRN (18:07)
[2021-12-11] MEDS ORDERED: METOCLOPRAMIDE 5 MG/ML 2 ML VIAL IVP PRN (18:07)
[2021-12-11] MEDS: HYDROmorphone 0.5 MG/0.5 ML SYRINGE IVP PRN ×2 (18:19→18:26)
[2021-12-11] MEDS ORDERED: KETOROLAC 15 MG/ML 1 ML VIAL IVP ONE (18:21)
--- NOTE | 2021-12-11 18:27 | P.OP ---
Date of Procedure: 12/11/21 Description of Procedure: SURGEON: ARMIN JAIME MD PREOPERATIVE DIAGNOSES: 1. Recurrent right inguinal hernia 2. Initial left inguinal hernia POSTOPERATIVE DIAGNOSES: 1. Initial left indirect inguinal hernia, incarcerated with sigmoid colon, large bowel obstruction 2. Recurrent right groin hernia, incarcerated obturator hernia 3. Moderate pelvic adhesions, left lower quadrant 4. Right obturator inguinal lipoma, over 4 cm 5. Left indirect inguinal lipoma, over 3 cm OPERATION: 1. Robotic-assisted da Elier Xi laparoscopic reduction repair of initial incarcerated left indirect inguinal hernia with mesh, 10 x [address] 2. Robotic-assisted da Elier Xi laparoscopic reduction repair of recurrent incarcerated right obturator hernia with mesh, 11.[address] 3. Robotic-assisted da Elier Xi laparoscopic laparoscopic lysis of adhesions over 1.5 hours, pelvis 4. Excision of right inguinal lipoma, over 5 cm 5. Excision of left inguinal lipoma, over 4 cm ANESTHESIA: General, regional with local anesthetic ESTIMATED BLOOD LOSS: 10 mL. SPECIMENS: 1. Incarcerated left inguinal hernia sac with lipoma 2. Incarcerated right inguinal hernia sac with lipoma COMPLICATIONS: None. FINDINGS: 1. Incarcerated left indirect inguinal hernia over 4 x 4 cm, Nyhus IV, incorporating sigmoid colon with obstruction 2. Incarcerated right inguinal hernia over 3 x 3 cm, Nyhus IV, incorporating obturator lipoma 3. Sigmoid colon incarceration and reduced without colotomy from the left inguinal hernia 4. Sigmoid diverticulosis INDICATIONS: The patient is a 66-year-old male who presents with history of prior right inguinal hernia and initial left inguinal hernia. He reports changes in bowel habits as a result. Now he presents for definitive surgical intervention. Laparoscopic versus open and robotic approaches were discussed including bilateral approach. Benefits and risks including bleeding, infection, chronic groin pain, sterility were reviewed. Placement of mesh was also described. Informed consent was obtained. DESCRIPTION: In the preoperative area, an abdominal block was placed per anesthesia. The patient was brought to the operating room and initially laid in supine position. The abdomen had been prepped and draped in standard sterile fashion. Ioban draping was also placed. Prior to incision, a timeout protocol was confirmed with surgical team regarding patient's name including procedures to be performed. Initial positioning for the robotic assisted ports were selected 20 cm superior to the target anatomy. A 0 degree 5 mm laparoscopic trocar entry was performed at the left upper quadrant. The abdomen was insufflated to 15 mmHg which he tolerated well. Diagnostic laparoscopy demonstrated no injury to bowel, viscera or mesentery. Incarcerated sigmoid colon was found along the left groin. Along the right groin, another obturator hernia involving lipoma was found. Next, along the epigastrium, 8 mm robot trocar was placed. An 8-mm robotic trocar was placed under direct visualization at the right upper quadrant. An 8 mm port was placed at the left upper quadrant. All trocars were positioned between 10-cm apart from each other. The Sarbari XI robot was primed, draped, prepared for docking along upper abdomen of the patient. The patient was positioned 14 Trendelenburg position. I then went to the Sarbari Xi console. The business office assistant was at bedside for exchange of the robot arms and equipment. Attention was brought to the left groin. A very large left inguinal defect was confirmed as the sigmoid colon was reduced from the left groin after direct pressure over the inguinal area was placed by me after returning to the bedside with the patient. The left groin defect was measured 4 x 4-cm hernia with the sac extending to the scrotum. A large indirect hernia was confirmed, Nyhus type IV. The sidewall of the mid sigmoid colon was still incarcerated within the left inguinal hernia where extensive lysis of adhesions was performed for over 1.5 hours to release the peritoneal adhesions of the pelvis carefully without colotomy. Combination of sharp dissection using scissors of the cartridge including vessel sealer was performed. Multiple adhesions were released and the sigmoid colon was mobilized to the upper abdomen. A large inguinal spermatic cord lipoma was found extending from the pelvis into the scrotum and divided and released without injury to the vas deferens. The peritoneum was opened and subsequently closed after specimen was obtained. The size of the lipoma was over 4 cm. The left inguinal canal foramen from the pelvis side was re-created using 2-0 VLOC absorbable. A pelvic floor reconstruction was performed with re-creating the pelvic floor and posterior wall using the peritoneum of the pelvis. A running suture of nonabsorbable 2-0V LOC was used for the creation of the pelvic floor. The left inguinal hernia sac was evaginated whereby the peritoneum was scored using Endo scissors with cautery. As the hernia sac extended into the groin, resection of the sac was done with the canal. The peritoneal sac of the hernia was stripped. The sac was resected and then passed off for further pathological analysis. The size of the hernia defect was 4 cm x 4 cm with intraoperative films obtained. The defect was closed with complete reduction of the left indirect inguinal hernia was confirmed. As an onlay, a 10 x [address] mesh by Bard was cut in half and entered into the abdominal cavity via the right 8 mm trocar. The mesh was tacked to the pelvis using 2-0 VLOC 9-inch length sutures, nonabsorbable. Attention was brought to the right groin. A large right obturator inguinal defect just lateral to the bladder right wall and was reduced from the right groin. Next, the right groin defect was measured 3 x 3-cm hernia with the sac lateral to the bladder, Nyhus type IV. The right inguinal hernia sac was evaginated whereby the peritoneum was scored using Endo scissors with cautery. As the hernia sac extended was resected using a vessel sealer without injury to the bladder sidewall. The peritoneal sac of the hernia was stripped. The sac was resected and then passed off for further pathological analysis. The size of the hernia defect was 3 cm x 3 cm with intraoperative films obtained. Using nonabsorbable 2-0 VLOC, the peritoneal defect of the right inguinal hernia site was closed using a pursestring suture. The defect was found to be closed with reduction of the right obturator hernia. As an onlay, 10 x [address] mesh by G-cluster was cut in half and entered into the abdominal cavity via the 8 mm trocar. The mesh was tacked to the pelvis using 2-0 VLOC 9- inch length sutures, nonabsorbable. Bleeding along the right abdominal wall was controlled using pressure and gauze. A final endoscopic imaging was obtained. The robot was undocked from the patient's bedside. I then rescrubbed into the case. Insufflation was released from the abdominal cavity and all instruments were removed from the abdominal cavity. Pressure was applied along the bilateral groin. The rest of incisions were reapproximated using 4-0 Monocryl in a running subcuticular fashion. Incisions were cleansed using dilute hydrogen peroxide. Liquid glue was applied to the skin. At the end of the procedure, the needle, sponge and instrument counts had been verified correct by the surgical resident. The patient had tolerated the procedure well and was taken to the postanesthesia care unit in stable condition. Intraoperative images were reviewed with the patient's family who were pleased with the level of care.
--- NOTE | 2021-12-11 18:28 | P.PN ---
Progress Note - Text Progress Note Date: 12/11/21 Due to findings of incarcerated left inguinal hernia involving sigmoid colon and subsequent large bowel obstruction, inpatient admission revised.
[2021-12-11] MEDS ORDERED: HYDROmorphone 1 MG/ML 1 ML SYRINGE IM PRN (18:30)
[2021-12-11] MEDS ORDERED: HYDROmorphone 1 MG/ML 1 ML SYRINGE IVP PRN (19:53)
[2021-12-11] MEDS ORDERED: TAMSULOSIN 0.4 MG CAP.ER.24H PO ONE (20:00)
[2021-12-11] MEDS ORDERED: oxyCODONE-APAP 7.5-325MG 1 EACH TAB PO PRN (22:37)
[2021-12-12] MEDS ORDERED: ACETAMINOPHEN TAB 325 MG TAB PO SCH
[2021-12-12] MEDS: ACETAMINOPHEN TAB 500 MG TAB PO SCH ×2 (01:03→12:21)
[2021-12-12] MEDS: GABAPENTIN 300 MG CAP PO SCH ×2 (06:26→09:00)
[2021-12-12] MEDS ORDERED: TAMSULOSIN 0.4 MG CAP.ER.24H PO SCH (08:30)
--- NOTE | 2021-12-12 11:34 | P.DS ---
Providers Date of admission: 12/11/21 19:19 Expected date of discharge: 12/12/21 Attending physician: Sophie Warren Consults: 12/11/21 09:00 Consult Physician Routine Consulting Provider: [facility] Consult Reason/Comments: Regional block Do you want consulting provider notified?: Yes Primary care physician: Stated None Hospital Course: Discharge diagnosis 1. Initial left indirect inguinal hernia, incarcerated with sigmoid colon, large bowel obstruction 2. Recurrent right groin hernia, incarcerated obturator hernia 3. Moderate pelvic adhesions, left lower quadrant 4. Right obturator inguinal lipoma, over 4 cm 5. Left indirect inguinal lipoma, over 3 cm Hospital course The patient is a 66-year-old male who presents with history of prior right inguinal hernia and initial left inguinal hernia. He reports changes in bowel habits as a result. Patient is status post Robotic-assisted da Elier Xi laparoscopic reduction repair of initial incarcerated left indirect inguinal hernia with mesh, reduction repair of recurrent incarcerated right obturator hernia with mesh, 11.4 cm, lysis of adhesions, Excision of right inguinal lipoma and Excision of left inguinal lipoma. Patient tolerated surgery well. His pain is controlled. He is up and ambulating. He is having flatus. He is tolerating diet. He is afebrile. He is stable for discharge. Physician Estate Administrator note has been reviewed by physician. Signing provider agrees with the documented findings, assessment, and plan of care. Patient Condition at Discharge: Stable Plan - Discharge Summary Discharge Rx Participant: No New Discharge Prescriptions: No Action No Known Home Medications Discharge Medication List No Known Home Medications 12/08/21 [History] Follow up Appointment(s)/Referral(s): Sophie Warren MD [STAFF PHYSICIAN] - 12/23/21 Activity/Diet/Wound Care/Special Instructions: No lifting over 4 pounds in 4 weeks until January 08. You may shower. No bath tub soaks for two weeks until December 25 Use Tylenol and ibuprofen scheduled for the next 24-48 hours for best pain relief. Use ice along incisions for the today to prevent swelling Discharge Disposition: HOME SELF-CARE
[2021-12-12] MEDS: LACTATED RINGERS 1,000 ML IV SCH (12:17)
[2021-12-12 12:49] VITALS: BP 113/67; PULSE 72; RESP 18; TEMP 98
== END 2021-12-12 13:10 | disposition home or self-care (01) | DRG 337 ==
LOC: OR 10:51 → 4SSUR 17:51 → OR 18:08 → 4SSUR 19:19
PROVIDERS: ADMIT Surgery Plastic and Reconstructive Surgery; ATTEND Surgery Plastic and Reconstructive Surgery
PROC: 0DNW4ZZ Release Peritoneum, Percutaneous Endoscopic Approach (ICD-10-PCS; 2021-12-11)
PROC: 8E0W4CZ Robotic Assisted Procedure of Trunk Region, Percutaneous Endoscopic Approach (ICD-10-PCS; 2021-12-11)
PROC: 0YUA4JZ Supplement Bilateral Inguinal Region with Synthetic Substitute, Percutaneous Endoscopic Approach (ICD-10-PCS; principal; 2021-12-11 12:45)
DX: K40.01 Bilateral inguinal hernia, with obstruction, without gangrene, recurrent (principal); D17.6 Benign lipomatous neoplasm of spermatic cord; K57.30 Diverticulosis of large intestine without perforation or abscess without bleeding; K66.0 Peritoneal adhesions (postprocedural) (postinfection); Z80.1 Family history of malignant neoplasm of trachea, bronchus and lung; Z87.891 Personal history of nicotine dependence
CPT/HCPCS: 64999; 80053; 85025; 88302